=== PATIENT | male | born 1945 | race Caucasian/White ===

== ENCOUNTER 2017-07-15 14:00 | Day surgery (SDC) | payer MEDICARE ==
[~2017-07-15 14:00] MED LIST: ALLO100 PO; ASPI81CH PO; ASPI81EC PO; ATEN25 PO; BIOTIN5000 MCG; BUME2 PO; CHOL10002 PO; CILO100 PO; CLOP75 PO; CYAN1000 PO; CYAN500; D-BIOTIN1 GM; DOCU100 PO; FISH1000 PO; FURO40 PO; Fish Oil 10001000 MG; Flovent Diskus50 MCG IH; GABA100 PO; IRON150C PO; ISOD40ER PO; LATANOPROST2.5 ML RIGHTEYE; LINZESS72 MCG PO; LISI5 PO; Lisinopril2.5 MG PO; MULTI VIT PO; OMEP20ER PO; OXYACE5T PO; Omeprazole20 M1; ROPI.25 PO; ROSU10TA PO; SEVEC800 PO; TAMS.4ER PO; TOCO1000 PO; TOCO400 PO
[2018-04-29] MEDS ORDERED: CARB25 PO (12:14)
[2018-04-29] MEDS ORDERED: SEVEC800 (12:15)
== END 2017-07-15 22:51 | disposition home or self-care (01) ==
LOC: WOUND 14:00
PROC: 0HBNXZZ Excision of Left Foot Skin, External Approach (ICD-10-PCS; principal; 2017-07-15)
DX: Z48.00 Encounter for change or removal of nonsurgical wound dressing (principal); E11.22 Type 2 diabetes mellitus with diabetic chronic kidney disease; L89.892 Pressure ulcer of other site, stage 2; I73.9 Peripheral vascular disease, unspecified; I10 Essential (primary) hypertension; I70.209 Unspecified atherosclerosis of native arteries of extremities, unspecified extremity; D50.9 Iron deficiency anemia, unspecified
CPT/HCPCS: G0463

== ENCOUNTER 2017-07-22 14:04 | Day surgery (SDC) | payer MEDICARE ==
[2018-04-29] MEDS ORDERED: CARB25 PO (12:14)
[2018-04-29] MEDS ORDERED: SEVEC800 (12:15)
== END 2017-07-22 17:17 | disposition home or self-care (01) ==
LOC: WOUND 14:04
PROC: 0HBNXZZ Excision of Left Foot Skin, External Approach (ICD-10-PCS; principal; 2017-07-22)
DX: Z48.00 Encounter for change or removal of nonsurgical wound dressing (principal); E11.22 Type 2 diabetes mellitus with diabetic chronic kidney disease; L89.892 Pressure ulcer of other site, stage 2; I73.9 Peripheral vascular disease, unspecified; I10 Essential (primary) hypertension; I70.209 Unspecified atherosclerosis of native arteries of extremities, unspecified extremity; D50.9 Iron deficiency anemia, unspecified

== ENCOUNTER 2017-07-29 00:19 | Day surgery (SDC) | payer MEDICARE ==
[2018-04-29] MEDS ORDERED: CARB25 PO (12:14)
[2018-04-29] MEDS ORDERED: SEVEC800 (12:15)
== END 2017-07-29 16:01 | disposition home or self-care (01) ==
LOC: WOUND 00:19
PROC: 0JBR0ZZ Excision of Left Foot Subcutaneous Tissue and Fascia, Open Approach (ICD-10-PCS; principal; 2017-07-29)
DX: Z48.00 Encounter for change or removal of nonsurgical wound dressing (principal); E08.622 Diabetes mellitus due to underlying condition with other skin ulcer; L89.892 Pressure ulcer of other site, stage 2; I73.9 Peripheral vascular disease, unspecified; I70.209 Unspecified atherosclerosis of native arteries of extremities, unspecified extremity; D50.9 Iron deficiency anemia, unspecified; E11.22 Type 2 diabetes mellitus with diabetic chronic kidney disease; I12.9 Hypertensive chronic kidney disease with stage 1 through stage 4 chronic kidney disease, or unspecified chronic kidney disease; N18.9 Chronic kidney disease, unspecified; E66.9 Obesity, unspecified; Z99.2 Dependence on renal dialysis

== ENCOUNTER 2017-08-05 13:00 | Day surgery (SDC) | payer MEDICARE ==
[2018-04-29] MEDS ORDERED: CARB25 PO (12:14)
[2018-04-29] MEDS ORDERED: SEVEC800 (12:15)
== END 2017-08-05 14:52 | disposition home or self-care (01) ==
LOC: WOUND 13:00
DX: Z48.00 Encounter for change or removal of nonsurgical wound dressing (principal); E11.22 Type 2 diabetes mellitus with diabetic chronic kidney disease; L89.892 Pressure ulcer of other site, stage 2; I73.9 Peripheral vascular disease, unspecified; I10 Essential (primary) hypertension; I70.209 Unspecified atherosclerosis of native arteries of extremities, unspecified extremity; D50.9 Iron deficiency anemia, unspecified
CPT/HCPCS: G0463

== ENCOUNTER 2017-08-12 14:02 | Day surgery (SDC) | payer MEDICARE ==
[2018-04-29] MEDS ORDERED: CARB25 PO (12:14)
[2018-04-29] MEDS ORDERED: SEVEC800 (12:15)
== END 2017-08-12 22:45 | disposition home or self-care (01) ==
LOC: WOUND 14:02
DX: Z48.00 Encounter for change or removal of nonsurgical wound dressing (principal); E11.22 Type 2 diabetes mellitus with diabetic chronic kidney disease; L89.892 Pressure ulcer of other site, stage 2; I73.9 Peripheral vascular disease, unspecified; I10 Essential (primary) hypertension; I70.209 Unspecified atherosclerosis of native arteries of extremities, unspecified extremity; D50.9 Iron deficiency anemia, unspecified
CPT/HCPCS: G0463

== ENCOUNTER 2017-08-18 07:35 | Day surgery (SDC) | payer MEDICARE ==
[2018-04-29] MEDS ORDERED: CARB25 PO (12:14)
[2018-04-29] MEDS ORDERED: SEVEC800 (12:15)
== END 2017-08-18 23:01 | disposition home or self-care (01) ==
LOC: WOUND 07:35
PROC: 0HBNXZZ Excision of Left Foot Skin, External Approach (ICD-10-PCS; principal; 2017-08-18)
DX: Z48.00 Encounter for change or removal of nonsurgical wound dressing (principal); E11.22 Type 2 diabetes mellitus with diabetic chronic kidney disease; L89.892 Pressure ulcer of other site, stage 2; I73.9 Peripheral vascular disease, unspecified; I10 Essential (primary) hypertension; I70.209 Unspecified atherosclerosis of native arteries of extremities, unspecified extremity; D50.9 Iron deficiency anemia, unspecified
CPT/HCPCS: G0463

== ENCOUNTER 2017-08-21 08:44 | Day surgery (SDC) | payer MEDICARE ==
[2017-08-21] MEDS ORDERED: MERIBIN5 MG PO (15:22)
[2017-08-21] MEDS ORDERED: CILO100 PO (15:22)
[2018-04-29] MEDS ORDERED: CARB25 PO (12:14)
[2018-04-29] MEDS ORDERED: SEVEC800 (12:15)
== END 2017-08-21 23:18 | disposition home or self-care (01) ==
LOC: ATC 08:44 → EDSTATUS 08-20 15:20 → LAB FUT 08-20 15:20
PROC: 30233N1 Transfusion of Nonautologous Red Blood Cells into Peripheral Vein, Percutaneous Approach (ICD-10-PCS; principal; 2017-08-21)
DX: I12.9 Hypertensive chronic kidney disease with stage 1 through stage 4 chronic kidney disease, or unspecified chronic kidney disease (principal); N18.6 End stage renal disease; D63.1 Anemia in chronic kidney disease
CPT/HCPCS: 36415; 36430; 86850; 86900; 86901; 86923; J7030; P9016

== ENCOUNTER 2017-08-25 01:11 | Day surgery (SDC) | payer MEDICARE ==
[~2017-08-25 01:11] MED LIST changes: +MERIBIN5 MG PO
[2018-04-29] MEDS ORDERED: CARB25 PO (12:14)
[2018-04-29] MEDS ORDERED: SEVEC800 (12:15)
== END 2017-08-25 10:11 | disposition home or self-care (01) ==
LOC: ATC 01:11
DX: D64.9 Anemia, unspecified (principal); E11.22 Type 2 diabetes mellitus with diabetic chronic kidney disease; N18.6 End stage renal disease; E78.5 Hyperlipidemia, unspecified; E55.9 Vitamin D deficiency, unspecified; G47.33 Obstructive sleep apnea (adult) (pediatric)
CPT/HCPCS: 36415; 36430; 86850; 86900; 86901; 86923; J7030; P9016

== ENCOUNTER 2017-08-26 00:10 | Day surgery (SDC) | payer MEDICARE ==
[2018-04-29] MEDS ORDERED: CARB25 PO (12:14)
[2018-04-29] MEDS ORDERED: SEVEC800 (12:15)
== END 2017-08-26 15:06 | disposition home or self-care (01) ==
LOC: WOUND 00:10
DX: Z48.00 Encounter for change or removal of nonsurgical wound dressing (principal); E11.22 Type 2 diabetes mellitus with diabetic chronic kidney disease; L89.892 Pressure ulcer of other site, stage 2; I73.9 Peripheral vascular disease, unspecified; I10 Essential (primary) hypertension; D50.9 Iron deficiency anemia, unspecified
CPT/HCPCS: G0463

== ENCOUNTER 2017-09-04 00:34 | Day surgery (SDC) | payer MEDICARE ==
[2018-04-29] MEDS ORDERED: CARB25 PO (12:14)
[2018-04-29] MEDS ORDERED: SEVEC800 (12:15)
== END 2017-09-04 23:56 | disposition home or self-care (01) ==
LOC: WOUND 00:34
PROC: 0HBNXZZ Excision of Left Foot Skin, External Approach (ICD-10-PCS; principal; 2017-09-04)
DX: Z48.00 Encounter for change or removal of nonsurgical wound dressing (principal); E11.22 Type 2 diabetes mellitus with diabetic chronic kidney disease; L89.892 Pressure ulcer of other site, stage 2; I73.9 Peripheral vascular disease, unspecified; I10 Essential (primary) hypertension; I70.209 Unspecified atherosclerosis of native arteries of extremities, unspecified extremity; D50.9 Iron deficiency anemia, unspecified
CPT/HCPCS: 87070; 87205; G0463

== ENCOUNTER 2017-09-09 00:19 | Day surgery (SDC) | payer MEDICARE ==
[2018-04-29] MEDS ORDERED: CARB25 PO (12:14)
[2018-04-29] MEDS ORDERED: SEVEC800 (12:15)
== END 2017-09-09 22:40 | disposition home or self-care (01) ==
LOC: WOUND 00:19
PROC: 0HBNXZZ Excision of Left Foot Skin, External Approach (ICD-10-PCS; principal; 2017-09-09)
PROC: 0HBNXZX Excision of Left Foot Skin, External Approach, Diagnostic (ICD-10-PCS; principal; 2017-09-09)
DX: L89.529 Pressure ulcer of left ankle, unspecified stage (principal); R23.4 Changes in skin texture; E66.9 Obesity, unspecified
CPT/HCPCS: 88305; G0463

== ENCOUNTER 2017-09-11 | Day surgery (SDC) | END 2017-09-11 13:03 | disposition home or self-care (01) ==

== ENCOUNTER 2017-09-16 09:40 | Day surgery (SDC) | payer MEDICARE ==
[2018-04-29] MEDS ORDERED: CARB25 PO (12:14)
[2018-04-29] MEDS ORDERED: SEVEC800 (12:15)
== END 2017-09-16 22:35 | disposition home or self-care (01) ==
LOC: WOUND 09:40
PROC: 0HBNXZZ Excision of Left Foot Skin, External Approach (ICD-10-PCS; principal; 2017-09-16)
DX: L89.892 Pressure ulcer of other site, stage 2 (principal); L89.522 Pressure ulcer of left ankle, stage 2; E66.9 Obesity, unspecified; E11.51 Type 2 diabetes mellitus with diabetic peripheral angiopathy without gangrene; I73.9 Peripheral vascular disease, unspecified; E11.22 Type 2 diabetes mellitus with diabetic chronic kidney disease; I10 Essential (primary) hypertension; I70.209 Unspecified atherosclerosis of native arteries of extremities, unspecified extremity; D50.9 Iron deficiency anemia, unspecified

== ENCOUNTER 2017-09-23 00:13 | Day surgery (SDC) | payer MEDICARE ==
[2018-04-29] MEDS ORDERED: CARB25 PO (12:14)
[2018-04-29] MEDS ORDERED: SEVEC800 (12:15)
== END 2017-09-23 22:44 | disposition home or self-care (01) ==
LOC: WOUND 00:13
PROC: 2W1 Placement, Anatomical Regions, Compression (ICD-10-PCS; principal; 2017-09-23)
DX: L89.892 Pressure ulcer of other site, stage 2 (principal); E11.22 Type 2 diabetes mellitus with diabetic chronic kidney disease; E11.51 Type 2 diabetes mellitus with diabetic peripheral angiopathy without gangrene; I73.9 Peripheral vascular disease, unspecified; I10 Essential (primary) hypertension; I70.209 Unspecified atherosclerosis of native arteries of extremities, unspecified extremity; D50.9 Iron deficiency anemia, unspecified

== ENCOUNTER 2017-09-25 09:30 | Day surgery (SDC) | payer MEDICARE ==
[2018-04-29] MEDS ORDERED: CARB25 PO (12:14)
[2018-04-29] MEDS ORDERED: SEVEC800 (12:15)
== END 2017-09-25 22:56 | disposition home or self-care (01) ==
LOC: WOUND 09:30
PROC: 0HBNXZZ Excision of Left Foot Skin, External Approach (ICD-10-PCS; principal; 2017-09-25)
PROC: 2W1TX6Z Compression of Left Foot using Pressure Dressing (ICD-10-PCS; principal; 2017-09-25)
DX: L89.522 Pressure ulcer of left ankle, stage 2 (principal); E11.22 Type 2 diabetes mellitus with diabetic chronic kidney disease; I73.9 Peripheral vascular disease, unspecified; I70.209 Unspecified atherosclerosis of native arteries of extremities, unspecified extremity; D50.9 Iron deficiency anemia, unspecified; E66.9 Obesity, unspecified; Z99.2 Dependence on renal dialysis

== ENCOUNTER 2017-09-28 15:14 | Day surgery (SDC) | payer MEDICARE ==
[2018-04-29] MEDS ORDERED: CARB25 PO (12:14)
[2018-04-29] MEDS ORDERED: SEVEC800 (12:15)
== END 2017-09-28 23:03 | disposition home or self-care (01) ==
LOC: WOUND 15:14
PROC: 2W0TX6Z Change Pressure Dressing on Left Foot (ICD-10-PCS; principal; 2017-09-28)
DX: Z48.00 Encounter for change or removal of nonsurgical wound dressing (principal); E11.621 Type 2 diabetes mellitus with foot ulcer; L97.429 Non-pressure chronic ulcer of left heel and midfoot with unspecified severity; E11.622 Type 2 diabetes mellitus with other skin ulcer; L89.529 Pressure ulcer of left ankle, unspecified stage; L89.892 Pressure ulcer of other site, stage 2; E11.22 Type 2 diabetes mellitus with diabetic chronic kidney disease; I12.0 Hypertensive chronic kidney disease with stage 5 chronic kidney disease or end stage renal disease; N18.6 End stage renal disease; I70.209 Unspecified atherosclerosis of native arteries of extremities, unspecified extremity; D50.9 Iron deficiency anemia, unspecified; Z99.2 Dependence on renal dialysis; E66.9 Obesity, unspecified

== ENCOUNTER 2017-10-09 00:16 | Day surgery (SDC) | payer MEDICARE ==
[2018-04-29] MEDS ORDERED: CARB25 PO (12:14)
[2018-04-29] MEDS ORDERED: SEVEC800 (12:15)
== END 2017-10-09 15:55 | disposition home or self-care (01) ==
LOC: WOUND 00:16
DX: Z48.00 Encounter for change or removal of nonsurgical wound dressing (principal); E11.621 Type 2 diabetes mellitus with foot ulcer; L97.521 Non-pressure chronic ulcer of other part of left foot limited to breakdown of skin; I70.209 Unspecified atherosclerosis of native arteries of extremities, unspecified extremity; L89.892 Pressure ulcer of other site, stage 2; I10 Essential (primary) hypertension; D50.9 Iron deficiency anemia, unspecified; E66.9 Obesity, unspecified; Z68.33 Body mass index [BMI] 33.0-33.9, adult

== ENCOUNTER 2017-10-14 13:30 | Day surgery (SDC) | payer MEDICARE | END 2017-10-14 14:47 | disposition home or self-care (01) | LOC: WOUND 13:30 | PROC: 0HBNXZZ Excision of Left Foot Skin, External Approach (ICD-10-PCS; principal; 2017-10-14) | DX: L89.522 Pressure ulcer of left ankle, stage 2 (principal); E11.22 Type 2 diabetes mellitus with diabetic chronic kidney disease; L89.892 Pressure ulcer of other site, stage 2; I73.9 Peripheral vascular disease, unspecified; I10 Essential (primary) hypertension; I70.209 Unspecified atherosclerosis of native arteries of extremities, unspecified extremity; D50.9 Iron deficiency anemia, unspecified; E11.9 Type 2 diabetes mellitus without complications | CPT/HCPCS: G0463 ==

== ENCOUNTER 2017-10-21 09:13 | Day surgery (SDC) | payer MEDICARE | END 2017-10-21 22:45 | disposition home or self-care (01) | LOC: WOUND 09:13 | PROC: 2W1TX6Z Compression of Left Foot using Pressure Dressing (ICD-10-PCS; principal; 2017-10-21) | DX: L89.529 Pressure ulcer of left ankle, unspecified stage (principal); L89.892 Pressure ulcer of other site, stage 2; I73.9 Peripheral vascular disease, unspecified; I10 Essential (primary) hypertension; I70.209 Unspecified atherosclerosis of native arteries of extremities, unspecified extremity; D50.9 Iron deficiency anemia, unspecified; E11.9 Type 2 diabetes mellitus without complications; Z99.2 Dependence on renal dialysis ==

== ENCOUNTER 2018-01-05 11:21 | Inpatient (IN) | payer MEDICARE ==
[~2018-01-05] VITALS: Ht 167.6 cm; Wt 87.5 kg
[2018-01-05 12:19] LABS: BASOPHILS ABSOLUTE AUTO 0.06 K/mm3 (0.00-0.23); BASOPHILS PERCENT AUTO 1 % (0-2); EOSINOPHILS ABSOLUTE AUTO 0.29 K/mm3 (0.00-0.68); EOSINOPHILS PERCENT AUTO 2 % (0-6); Hematocrit 37.4 % (37.0-53.0); Hemoglobin 12.6 g/dL (13.5-17.5); IMMATURE GRAN ABSOLUTE AUTO 0.04 K/mm3 (0.00-0.10); IMMATURE GRAN PERCENT AUTO 0 % (0-1); LYMPHOCYTES ABSOLUTE AUTO 3.36 K/mm3 (0.84-5.20); LYMPHOCYTES PERCENT AUTO 26 % (21-46); MONOCYTES ABSOLUTE AUTO 0.85 K/mm3 (0.16-1.47); MONOCYTES PERCENT AUTO 7 % (4-13); Mean Corpuscular HGB 29.4 pg (26.0-34.0); Mean Corpuscular HGB Conc 33.7 g/dL (31.5-36.5); Mean Corpuscular Volume 87 fL (80-100); Mean Platelet Volume 9.8 fL (9.1-12.4); NEUTROPHILS ABSOLUTE AUTO 8.26 K/mm3 (1.96-9.15); NEUTROPHILS PERCENT AUTO 64 % (41-73); Platelet Count 275 K/mm3 (150-400); RDW Standard Deviation 47.6 fL (35.1-46.3); Red Blood Cell Count 4.28 M/mm3 (4.30-5.90); White Blood Cell Count 12.86 K/mm3 (4.00-11.30)
[2018-01-05] MEDS ORDERED: Fish Oil 10001000 MG PO (12:25)
[2018-01-05] MEDS ORDERED: Ropinirole HCl0.5 MG PO (12:28)
[2018-01-05] MEDS ORDERED: LATANOPROST2.5 ML OP (12:28)
[2018-01-05 12:32] LABS: Alanine Aminotransfer (ALT/SGP 196 U/L (12-78); Albumin, Blood 3.4 g/dL (3.4-5.0); Albumin/Globulin Ratio 0.6 (0.8-1.8); Alk Phos 384 U/L (50-136); Anion Gap 17 mmol/L (6-16); Aspartate Aminotrans (AST/SGOT 301 U/L (12-37); Bilirubin, Total 1.8 mg/dL (0.1-1.0); Blood Urea Nitrogen 71 mg/dL (8-24); Bun/Creatinine Ratio 9.6 (12.0-20.0); CO2, Blood 26 mmol/L (21-32); CPK Creatine Kinase 196 U/L (39-308); Calcium, Blood 8.9 mg/dL (8.5-10.1); Chloride, Blood 88 mmol/L (98-108); Creatine Kinase MB 7.2 ng/mL (0.0-3.6); Creatine Kinase MB Index 3.7 (0.0-4.0); Creatinine, Blood 7.37 mg/dL (0.60-1.20); Globulin, Blood 5.5 g/dL (2.2-4.0); Glomerular Filtration Rate 8 (60-); Glucose, Blood 102 mg/dL (70-99); Potassium, Blood 3.5 mmol/L (3.5-5.5); Sodium, Blood 131 mmol/L (136-145); Total Protein, Blood 8.9 g/dL (6.4-8.2); Troponin I <0.015 ng/mL (0.000-0.040)
[2018-01-05] MEDS ORDERED: TAMS.4ER PO (15:52)
[2018-01-05] MEDS ORDERED: Omeprazole20 M1 PO (15:53)
[2018-01-05 20:11] LABS: Anion Gap 15 mmol/L (6-16); Blood Urea Nitrogen 70 mg/dL (8-24); Bun/Creatinine Ratio 9.2 (12.0-20.0); CO2, Blood 25 mmol/L (21-32); Calcium, Blood 8.4 mg/dL (8.5-10.1); Chloride, Blood 91 mmol/L (98-108); Creatinine, Blood 7.63 mg/dL (0.60-1.20); Glomerular Filtration Rate 7 (60-); Glucose, Blood 128 mg/dL (70-99); Potassium, Blood 3.3 mmol/L (3.5-5.5); Sodium, Blood 131 mmol/L (136-145); Triglycerides 172 mg/dL (30-160)
[2018-01-06 05:13] LABS: Hemoglobin 11.6 g/dL (13.5-17.5)
[2018-01-06 05:38] LABS: Alanine Aminotransfer (ALT/SGP 453 U/L (12-78); Albumin, Blood 2.8 g/dL (3.4-5.0); Albumin/Globulin Ratio 0.6 (0.8-1.8); Alk Phos 523 U/L (50-136); Anion Gap 18 mmol/L (6-16); Aspartate Aminotrans (AST/SGOT 359 U/L (12-37); Bilirubin, Direct 2.7 mg/dL (0.0-0.3); Bilirubin, Indirect 0.7 mg/dL (0.1-0.7); Bilirubin, Total 3.4 mg/dL (0.1-1.0); Blood Urea Nitrogen 73 mg/dL (8-24); Bun/Creatinine Ratio 9.1 (12.0-20.0); CO2, Blood 23 mmol/L (21-32); Calcium, Blood 8.2 mg/dL (8.5-10.1); Chloride, Blood 91 mmol/L (98-108); Globulin, Blood 4.8 g/dL (2.2-4.0); Glomerular Filtration Rate 7 (60-); Glucose, Blood 120 mg/dL (70-99); Magnesium, Blood 2.3 mg/dL (1.6-2.4); Phosphorus, Blood 7.7 mg/dL (2.5-4.9); Potassium, Blood 4.2 mmol/L (3.5-5.5); Sodium, Blood 132 mmol/L (136-145); Total Protein, Blood 7.6 g/dL (6.4-8.2)
[2018-01-07 05:19] LABS: Hematocrit 36.1 % (37.0-53.0); Hemoglobin 11.7 g/dL (13.5-17.5)
[2018-01-07 05:47] LABS: Magnesium, Blood 2.5 mg/dL (1.6-2.4)
[2018-01-07 05:57] LABS: Alanine Aminotransfer (ALT/SGP 278 U/L (12-78); Albumin, Blood 2.6 g/dL (3.4-5.0); Albumin/Globulin Ratio 0.5 (0.8-1.8); Alk Phos 600 U/L (50-136); Anion Gap 14 mmol/L (6-16); Aspartate Aminotrans (AST/SGOT 142 U/L (12-37); Bilirubin, Total 3.8 mg/dL (0.1-1.0); Blood Urea Nitrogen 60 mg/dL (8-24); Bun/Creatinine Ratio 8.2 (12.0-20.0); CO2, Blood 28 mmol/L (21-32); Calcium, Blood 8.8 mg/dL (8.5-10.1); Chloride, Blood 92 mmol/L (98-108); Globulin, Blood 4.8 g/dL (2.2-4.0); Glomerular Filtration Rate 8 (60-); Glucose, Blood 112 mg/dL (70-99); Phosphorus, Blood 7.6 mg/dL (2.5-4.9); Potassium, Blood 4.4 mmol/L (3.5-5.5); Sodium, Blood 134 mmol/L (136-145); Total Protein, Blood 7.4 g/dL (6.4-8.2)
[2018-01-07 17:08] LABS: HBSAG SCREEN Negative (Negative); HEP A AB, IGM Negative (Negative); HEP B CORE AB, IGM Negative (Negative); HEP C VIRUS AB 0.1 (0.0-0.9)
[2018-01-08 05:21] LABS: Hematocrit 33.9 % (37.0-53.0)
[2018-01-08 05:41] LABS: Albumin, Blood 2.4 g/dL (3.4-5.0); Anion Gap 14 mmol/L (6-16); Blood Urea Nitrogen 58 mg/dL (8-24); Bun/Creatinine Ratio 8.7 (12.0-20.0); CO2, Blood 29 mmol/L (21-32); Chloride, Blood 94 mmol/L (98-108); Creatinine, Blood 6.63 mg/dL (0.60-1.20); Glomerular Filtration Rate 9 (60-); Glucose, Blood 111 mg/dL (70-99); Magnesium, Blood 2.9 mg/dL (1.6-2.4); Sodium, Blood 137 mmol/L (136-145)
== END 2018-01-08 16:50 | disposition short-term general hospital (02) | DRG 438 ==
LOC: ER 11:21 → PCU 14:36
PROVIDERS: Emergency Medicine; Internal Medicine Endocrinology, Diabetes & Metabolism; Internal Medicine Nephrology; Surgery
PROC: 5A1D70Z Performance of Urinary Filtration, Intermittent, Less than 6 Hours Per Day (ICD-10-PCS; principal; 2018-01-06)
PROC: 5A09457 Assistance with Respiratory Ventilation, 24-96 Consecutive Hours, Continuous Positive Airway Pressure (ICD-10-PCS; 2018-01-06)
DX: K85.10 Biliary acute pancreatitis without necrosis or infection (principal); N18.6 End stage renal disease; E87.1 Hypo-osmolality and hyponatremia; I12.0 Hypertensive chronic kidney disease with stage 5 chronic kidney disease or end stage renal disease; K80.70 Calculus of gallbladder and bile duct without cholecystitis without obstruction; E87.6 Hypokalemia; E86.9 Volume depletion, unspecified; D63.1 Anemia in chronic kidney disease; E83.39 Other disorders of phosphorus metabolism; E88.09 Other disorders of plasma-protein metabolism, not elsewhere classified; I25.10 Atherosclerotic heart disease of native coronary artery without angina pectoris; J44.9 Chronic obstructive pulmonary disease, unspecified; M54.16 Radiculopathy, lumbar region; Z95.1 Presence of aortocoronary bypass graft; I73.9 Peripheral vascular disease, unspecified; E78.5 Hyperlipidemia, unspecified; G47.33 Obstructive sleep apnea (adult) (pediatric); E66.9 Obesity, unspecified; Z68.31 Body mass index [BMI] 31.0-31.9, adult; Z99.2 Dependence on renal dialysis; Z87.891 Personal history of nicotine dependence; Z79.82 Long term (current) use of aspirin; Z79.899 Other long term (current) drug therapy
CPT/HCPCS: 36415; 71046; 74019; 74181; 76705; 80048; 80053; 80069; 80074; 82248; 82550; 82553; 83690; 83735; 84100; 84132; 84478; 84484; 85014; 85018; 85025; 86317; 93005; 93010; 94760; 94762; 96374; 96375; 99285; C9113; J1170; J2405; J3010; J7030; J7042

== ENCOUNTER 2018-08-05 12:04 | Day surgery (SDC) | payer MEDICARE ==
[~2018-08-05] VITALS: Ht 157.5 cm; Wt 87.1 kg
[~2018-08-05 12:04] MED LIST changes: +CARB25 PO; +Fish Oil 10001000 MG PO; +LATANOPROST2.5 ML OP; +Omeprazole20 M1 PO; +Ropinirole HCl0.5 MG PO; +SEVEC800
== END 2018-08-05 13:56 | disposition home or self-care (01) ==
LOC: ORSCSDS 12:04
PROVIDERS: Ophthalmology
PROC: 08RK3JZ Replacement of Left Lens with Synthetic Substitute, Percutaneous Approach (ICD-10-PCS; principal; 2018-08-05 13:30)
DX: H25.12 Age-related nuclear cataract, left eye (principal); H21.81 Floppy iris syndrome; E11.36 Type 2 diabetes mellitus with diabetic cataract; I10 Essential (primary) hypertension; I25.2 Old myocardial infarction; G47.30 Sleep apnea, unspecified; K21.9 Gastro-esophageal reflux disease without esophagitis; Z87.891 Personal history of nicotine dependence; Z79.82 Long term (current) use of aspirin; Z79.899 Other long term (current) drug therapy
CPT/HCPCS: J2001; J2250; J3010; J7030; J7120; V2632

== ENCOUNTER → 2018-09-08 | Outpatient (CLI) | payer MEDICARE | END | disposition home or self-care (01) | LOC: PLD 11:26 → LAB SHORT 11:26 | DX: L11.8 Other specified acantholytic disorders (principal) | CPT/HCPCS: 88305 ==

== ENCOUNTER → 2018-09-27 | Outpatient (CLI) | payer MEDICARE | END | disposition home or self-care (01) | LOC: LAB 13:58 → LAB SHORT 13:58 | DX: A31.9 Mycobacterial infection, unspecified (principal) | CPT/HCPCS: 87070; 87075; 87205; 87206 ==

== ENCOUNTER 2018-11-08 21:42 | Inpatient (IN) | payer MEDICARE ==
[~2018-11-08] VITALS: Ht 177.8 cm; Wt 84.8 kg
[~2018-11-08 21:42] MED LIST changes: -SEVEC800
[2018-11-08 22:25] LABS: BASOPHILS ABSOLUTE AUTO 0.08 K/mm3 (0.00-0.23); BASOPHILS PERCENT AUTO 1 % (0-2); EOSINOPHILS ABSOLUTE AUTO 0.21 K/mm3 (0.00-0.68); EOSINOPHILS PERCENT AUTO 2 % (0-6); Hematocrit 39.2 % (37.0-53.0); IMMATURE GRAN ABSOLUTE AUTO 0.05 K/mm3 (0.00-0.10); IMMATURE GRAN PERCENT AUTO 0 % (0-1); LYMPHOCYTES ABSOLUTE AUTO 3.77 K/mm3 (0.84-5.20); LYMPHOCYTES PERCENT AUTO 32 % (21-46); MONOCYTES ABSOLUTE AUTO 1.46 K/mm3 (0.16-1.47); MONOCYTES PERCENT AUTO 12 % (4-13); Mean Corpuscular HGB 30.2 pg (26.0-34.0); Mean Corpuscular HGB Conc 30.6 g/dL (31.5-36.5); Mean Corpuscular Volume 99 fL (80-100); Mean Platelet Volume 9.6 fL (9.1-12.4); NEUTROPHILS ABSOLUTE AUTO 6.39 K/mm3 (1.96-9.15); NEUTROPHILS PERCENT AUTO 53 % (41-73); Platelet Count 392 K/mm3 (150-400); RDW Coefficient Variation 15.9 % (11.7-14.2); RDW Standard Deviation 58.2 fL (35.1-46.3); Red Blood Cell Count 3.97 M/mm3 (4.30-5.90); White Blood Cell Count 11.96 K/mm3 (4.00-11.30)
[2018-11-08 22:46] LABS: Albumin/Globulin Ratio 0.6 (0.8-1.8); Bilirubin, Total 0.7 mg/dL (0.1-1.0); Bun/Creatinine Ratio 3.1 (12.0-20.0); Calcium, Blood 10.5 mg/dL (8.5-10.1); Creatinine, Blood 4.57 mg/dL (0.60-1.20); Globulin, Blood 5.4 g/dL (2.2-4.0); Potassium, Blood 3.6 mmol/L (3.5-5.5); Total Protein, Blood 8.4 g/dL (6.4-8.2)
[2018-11-08 23:57] LABS: PO2 Arterial 62.7 mmHg (80-100); pH Blood Arterial 7.74 (7.35-7.45)
[2018-11-09] MEDS ORDERED: CALC.25 (00:26)
[2018-11-09] MEDS ORDERED: Vitamin D2000 UNIT PO (00:27)
[2018-11-09] MEDS ORDERED: Calcium Acetat667 MG PO (00:27)
[2018-11-09] MEDS ORDERED: DOCU100 PO (00:28)
[2018-11-09] MEDS ORDERED: LACT10SY PO (00:29)
[2018-11-09] MEDS ORDERED: OXYC5 PO (00:30)
[2018-11-09] MEDS ORDERED: Oxycodone-Apap1 EAC3 PO (00:31)
[2018-11-09] MEDS ORDERED: NITR.4SL SL (00:32)
[2018-11-09] MEDS ORDERED: MIRALAX17 GM PO (00:33)
[2018-11-09 00:54] LABS: Influenza A Negative (NEGATIVE); Influenza B Negative (NEGATIVE)
--- NOTE | 2018-11-09 01:30 | NUR ---
ADMIT PT ARRIVES TO PCU 12 FROM ER VIA STRETCHER. CURRENTLY ORIENTED TO SELF, FAMILY, MONTH,YEAR AND PLACE- DISORIENTED TO DAY, TOWN AND PRESIDENT. FAMILY REPORTS THAT HE IS MORE COHERENT THAT HE WAS EARLIER. PT APPEARS TO BE VERY ANXIOUS AND FIDGETY- PULLING LEGS UP AND REPORTING PAIN AND CRAMPING TO L LEG THAT IS CHRONIC DUE TO CYST IN BACK THAT IS PRESSING ON NERVE PER PT AND FAMILY. PT IS AFEBRILE. TACHYPNEA NOTED WITH ANXIETY AND REPORTS OF PAIN- O2 SATS CURRENTLY 97% ON RA, ALL OTHER VSS. LUNG SOUNDS CLEAR IN UPPER LOBES WITH DIMINISHED CRACKLES NOTED TO BASES- SHALLOW RESPIRATIONS NOTED. MEPILEX DRESSING NOTED TO LOWER UMBILICAL REGION OF ABDOMEN COVERING WOUND FROM PREVIOUS PERITINEAL DIALYSIS SITE THAT HAS A SMALL AMOUNT OF BROWN, PURULENT DRAINAGE. PT REPORTING DISCOMFORT TO RECTUM AND STATES THAT HE HAS NOT HAD A BOWEL MOVEMENT IN 6 DAYS- ABDOMEN IS SOFT AND NON-TENDER ON PALPATION PER PT, BS PRESENT IN ALL QUADRANTS. PT ORIENTED TO ROOM AND CALL LIGHT SYSTEM. EDUCATED ON PROPER CALL LIGHT USE AND CALLING FOR ASSISTANCE WITH CARE AND AMBULATION. WILL CONTINUE WITH ADMISSION AND ASSESSMENT. FAMILY REMAINS AT BEDSIDE. BED IN LOW POSITION, CALL LIGHT IN REACH.
[2018-11-09 01:54] LABS: BASOPHILS ABSOLUTE AUTO 0.05 K/mm3 (0.00-0.23); BASOPHILS PERCENT AUTO 1 % (0-2); EOSINOPHILS ABSOLUTE AUTO 0.02 K/mm3 (0.00-0.68); EOSINOPHILS PERCENT AUTO 0 % (0-6); Hematocrit 35.8 % (37.0-53.0); Hemoglobin 11.2 g/dL (13.5-17.5); IMMATURE GRAN ABSOLUTE AUTO 0.06 K/mm3 (0.00-0.10); IMMATURE GRAN PERCENT AUTO 1 % (0-1); LYMPHOCYTES ABSOLUTE AUTO 1.36 K/mm3 (0.84-5.20); LYMPHOCYTES PERCENT AUTO 13 % (21-46); MONOCYTES ABSOLUTE AUTO 1.23 K/mm3 (0.16-1.47); MONOCYTES PERCENT AUTO 12 % (4-13); Mean Corpuscular HGB 30.9 pg (26.0-34.0); Mean Corpuscular HGB Conc 31.3 g/dL (31.5-36.5); Mean Corpuscular Volume 99 fL (80-100); Mean Platelet Volume 9.8 fL (9.1-12.4); NEUTROPHILS ABSOLUTE AUTO 7.99 K/mm3 (1.96-9.15); NEUTROPHILS PERCENT AUTO 75 % (41-73); Platelet Count 322 K/mm3 (150-400); RDW Coefficient Variation 15.9 % (11.7-14.2); RDW Standard Deviation 57.7 fL (35.1-46.3); Red Blood Cell Count 3.62 M/mm3 (4.30-5.90); White Blood Cell Count 10.71 K/mm3 (4.00-11.30)
[2018-11-09 02:12] LABS: Albumin, Blood 2.5 g/dL (3.4-5.0); Albumin/Globulin Ratio 0.5 (0.8-1.8); Bilirubin, Total 0.7 mg/dL (0.1-1.0); Bun/Creatinine Ratio 3.4 (12.0-20.0); Calcium, Blood 9.4 mg/dL (8.5-10.1); Creatinine, Blood 4.66 mg/dL (0.60-1.20); Globulin, Blood 4.7 g/dL (2.2-4.0); Potassium, Blood 3.8 mmol/L (3.5-5.5); Total Protein, Blood 7.2 g/dL (6.4-8.2)
[2018-11-09 04:57] LABS: Hematocrit 36.3 % (37.0-53.0); Hemoglobin 11.2 g/dL (13.5-17.5)
[2018-11-09 05:11] LABS: Albumin, Blood 2.6 g/dL (3.4-5.0); Anion Gap 9 mmol/L (6-16); Blood Urea Nitrogen 16 mg/dL (8-24); Bun/Creatinine Ratio 3.4 (12.0-20.0); CO2, Blood 28 mmol/L (21-32); Calcium, Blood 9.7 mg/dL (8.5-10.1); Chloride, Blood 99 mmol/L (98-108); Creatinine, Blood 4.71 mg/dL (0.60-1.20); Glomerular Filtration Rate 13 (60-); Glucose, Blood 91 mg/dL (70-99); Magnesium, Blood 2.2 mg/dL (1.6-2.4); Phosphorus, Blood 2.2 mg/dL (2.5-4.9); Potassium, Blood 3.7 mmol/L (3.5-5.5); Sodium, Blood 136 mmol/L (136-145)
--- NOTE | 2018-11-09 05:54 | NUR ---
SHIFT SUMMARY- PT HAS BECOME MORE RELAXED AND ORIENTED THROUGHOUT THE REMAINDER OF THE NIGHT, BUT STILL UNABLE TO REPORT CURRENT DATE. VSS. HAS BEEN COOPERATIVE WITH CARE. PT MEDICATED ONCE FOR PAIN THAT DECREASED WITH ORDERED MEDICATION, CONTINUES TO REPORT DISCOMFORT TO RECTUM AND FEELS THAT HE WILL NEED TO HAVE A BM, BOWEL CARE INITIATED. PT HAS SLEPT THROUGHOUT PART OF THE NIGHT WITH CPAP IN PLACE WITH 3L O2 BLEED IN, WHICH IS BASELINE. O2 SATS HAVE REMAINED >90%. WOUND CARE PROVIDED AND DRESSING CHANGED TO ABDOMINAL WOUND. NO OTHER CHANGES FROM INITIAL ASSESSMENT. WILL CONTINUE TO MONITOR AND REPORT TO ONCOMING SHIFT RN. BED IN LOW POSITION, CALL LIGHT IN REACH. FAMILY REMAINS AT BEDSIDE.
--- NOTE | 2018-11-09 09:45 | NUR ---
RECEIVED REPORT AND ASSUMED CARE OF PATIENT. WHEN ASSESSING PATIENT HE IS CONFUSED AND SEEMS TO HAVE NONSENSICAL SPEECH. STATES HE NEEDS TO USE BEDPAN, CONTINUE TO PUT ON/OFF BEDPAN AND HAVE ADMINISTERED MEDICATIONS PER EMAR FOR BM PROTOCOL. PT TO DIALYSIS AT 0915.
[2018-11-09 12:24] LABS: Vancomycin, Random 11.9 ug/mL
--- NOTE | 2018-11-09 15:00 | NUR ---
PT BACK FROM DIALYSIS AROUND 1230, PT CONTINUES TO REPORT THAT HE NEEDS TO HAVE BM, BUT NO SUCESS. DRAFTER DIRECTIONAL SURVEY DEMOND ASKED FAMILY TO LEAVE ROOM AND PT WAS ABLE TO HAVE LARGE BM. TRANSFER ORDERS RECEIVED TO GO TO ROOM 339.
--- NOTE | 2018-11-09 15:24 | NUR ---
PT BEING TRANSFERRED TO MEDICAL FLOOR 339. GAVE REPORT TO NIKI GRIMALDO. WILL PREPARE PATIENTS ITEMS AND TRANSFER.
--- NOTE | 2018-11-10 04:57 | NUR ---
73 Y/O MALE RESTED COMFORTABLY ALL EVENING. PT NPO SINCE MIDNIGHT FOR ENDOSCOPY THIS AM AT 1100. PT ALERT AND ORIENTED X 3. NO RECTAL BLEEDING NOTED. PTS BED ALARM APPLIED, BED IN LOW POSITION, CALL LIGHT AT SIDE.
[2018-11-10 15:00] LABS: Vancomycin, Random 25.8 ug/mL
--- NOTE | 2018-11-10 17:31 | NUR ---
SHIFT SUMMARY PT HAS HAD NO ACUTE CHANGES THIS SHIFT, NO COMPLAINTS OF ANY KIND, PT UP ST BY ASSIST TO BR, UP IN RECLINER W/FAMILY AT BEDSIDE AT THIS TIME, WILL CONT TO MONITOR UNTIL REPORT GIVEN TO NOC RN.
[2018-11-11 05:15] LABS: Hematocrit 30.1 % (37.0-53.0); Hemoglobin 9.2 g/dL (13.5-17.5)
--- NOTE | 2018-11-11 05:17 | NUR ---
73 Y/O MALE RESTED COMFORTABLY IN BED ALL EVENING WHILE WEARING BI-PAP WITH O2 SATS AT 91%. PT ALERT AND ORIENTED X3, ABLE TO FOLLOW ALL SIMPLE VERBAL COMMANDS. PT DENIES PAIN OR NAUSEA. PT MAINTAINED IN CONTACT ISOLATION, BED LOW POSITION, CALL LIGHT AT SIDE.
[2018-11-11 05:37] LABS: Albumin, Blood 2.2 g/dL (3.4-5.0); Anion Gap 9 mmol/L (6-16); Blood Urea Nitrogen 34 mg/dL (8-24); Bun/Creatinine Ratio 4.9 (12.0-20.0); CO2, Blood 27 mmol/L (21-32); Calcium, Blood 9.6 mg/dL (8.5-10.1); Chloride, Blood 98 mmol/L (98-108); Creatinine, Blood 6.92 mg/dL (0.60-1.20); Glomerular Filtration Rate 8 (60-); Glucose, Blood 89 mg/dL (70-99); Magnesium, Blood 2.6 mg/dL (1.6-2.4); Phosphorus, Blood 6.5 mg/dL (2.5-4.9); Potassium, Blood 4.6 mmol/L (3.5-5.5); Sodium, Blood 134 mmol/L (136-145)
[2018-11-11 12:50] LABS: Vancomycin, Random 15.3 ug/mL
--- NOTE | 2018-11-11 18:45 | NUR ---
SHIFT SUMMARY NO ACUTE CHANGES. PATIENT HAD DIALYIS TODAY. MEDICATED X1 FOR BACK PAIN. SBA W/FWW TO BR. DENIES NAUSEA OR SHORTNESS OF BREATH. FAMILY AT BEDSIDE. CONTINUOUS BIOX. CPAP FOR NAPS. WILL CONTINUE TO MONITOR.
[2018-11-12 05:10] LABS: Hematocrit 28.8 % (37.0-53.0); Hemoglobin 8.8 g/dL (13.5-17.5)
[2018-11-12 05:36] LABS: Albumin, Blood 2.1 g/dL (3.4-5.0); Anion Gap 9 mmol/L (6-16); Blood Urea Nitrogen 28 mg/dL (8-24); Bun/Creatinine Ratio 4.8 (12.0-20.0); CO2, Blood 27 mmol/L (21-32); Calcium, Blood 9.5 mg/dL (8.5-10.1); Chloride, Blood 100 mmol/L (98-108); Creatinine, Blood 5.86 mg/dL (0.60-1.20); Glomerular Filtration Rate 10 (60-); Glucose, Blood 87 mg/dL (70-99); Magnesium, Blood 2.4 mg/dL (1.6-2.4); Phosphorus, Blood 5.3 mg/dL (2.5-4.9); Potassium, Blood 4.5 mmol/L (3.5-5.5); Sodium, Blood 136 mmol/L (136-145)
--- NOTE | 2018-11-12 07:28 | NUR ---
ASSUMED CARE OF PT- BEDSIDE REPORT COMPLETED WITH NIGHT RN BELKYS. PER REPORT PT IS A STANDBY TO 1PA TO THE BATHROOM. PT HAS CPAP AT NIGHT AND DESATS, EVEN DURRING NAPS, SIGNIFICANTLY WITHOUT IT. PT CURRENTLY SITTING AT THE EOB WITH THE CALL LIGHT IN REACH. PER REPORT PT WAS UP INTO THE CHAIR AND BACK TO BED REPEATEDLY T/O THE NIGHT. NO S&S OF DISTRESS NOTED, RESP E/U, ON CONT BIOX.
--- NOTE | 2018-11-12 12:13 | NUR ---
SITE TO BE ACCESSED BY Avani TORIBIO RN
[2018-11-12 14:30] LABS: Vancomycin, Random 20.4 ug/mL
--- NOTE | 2018-11-12 15:42 | NUR ---
Met with Glenroy in the dialysis unit this afternoon. He was admitted with sepsis and possible pneumonia. He has a history of ESRD on HD, COPD, CAD, HLD, peripheral neuropathy, ILENE, PVD, chronic pain, chronic systolic HF with EF of 40-45%. He rec'd one unit of PRBCs during dialysis treatment today. He reports fatigue today. He infact slept through most of his dialysis treatment today. Chart reviewed. Glenroy lives with his and will need antibiotics after he is discharged. Brief revies of symptoms done as Glenroy is fatigued. He denied pain, N/V, SOB at anthony time of this visit. Will need to address code status when he isn't so sleepy. Possible discharge home with tomorrow per MD note.
--- NOTE | 2018-11-12 19:25 | NUR ---
SHIFT SUMMARY- PT HAS HAD NO ACUTE CHANGES T/O THE SHIFT. HEMODIALYSIS DONE TODAY WITH BLOOD TRANSFUSION. PLAN FOR PT TO DC HOME TOMORROW, FAMILY AWARE. PT IN BED CALL LIGHT IN REACH, CURENT PAIN RAITING 10/27. PT ALERT AND ORIENTED AND 1P SBA TO THE BATHROOM. ON CONT BIOX, HAS NOT NEEDED CPAP FOR NAPS TODAY SATS STAYED IN THE 90'S T/O THE DAY.
--- NOTE | 2018-11-13 04:28 | NUR ---
INSURANCE COUNSEL SUMMARY NO ACUTE CHANGES THIS SHIFT. PT AAOX4 AND PLEASANT. CALLS APPROPRIATELY FOR ASSISTANCE. TREATED FOR BACK PAIN X1 WITH 2 TABS PERCOCET. PT REQUESTED TO SLEEP IN THE RECLINER TO HELP WITH BACK PAIN. PT TOLERATING CPAP WHILE SLEEPING. VSS, WILL CONTINUE TO MONITOR.
[2018-11-13 05:16] LABS: Hematocrit 32.6 % (37.0-53.0); Hemoglobin 10.1 g/dL (13.5-17.5)
[2018-11-13 06:15] LABS: Albumin, Blood 2.2 g/dL (3.4-5.0); Anion Gap 7 mmol/L (6-16); Blood Urea Nitrogen 27 mg/dL (8-24); Bun/Creatinine Ratio 4.9 (12.0-20.0); CO2, Blood 32 mmol/L (21-32); Calcium, Blood 9.4 mg/dL (8.5-10.1); Chloride, Blood 95 mmol/L (98-108); Creatinine, Blood 5.47 mg/dL (0.60-1.20); Glomerular Filtration Rate 11 (60-); Glucose, Blood 85 mg/dL (70-99); Magnesium, Blood 2.3 mg/dL (1.6-2.4); Phosphorus, Blood 4.3 mg/dL (2.5-4.9); Potassium, Blood 4.6 mmol/L (3.5-5.5); Sodium, Blood 134 mmol/L (136-145)
[2018-11-13] MEDS ORDERED: CEFTR1PB IV (12:03)
[2018-11-13] MEDS ORDERED: VANCOMYCIN HC1.25 GM IV (12:03)
--- NOTE | 2018-11-13 13:27 | NUR ---
PATIENT DISCHARGE THE PATIENT WAS DISCHHARGED HOME WITH HIS FAMILY, AFTER DISCHARGE INSTRUCTIONS WERE GIVEN TO THE PATIENT. THE PATIENT WAS INSTRUCTED TO FOLLOW UP WITH HIS PCP AND TO PICKUP HIS PRESCRIPTIN AT [facility] ARRANGED. THE PATIENT LEFT THE HOSPITAL WITHOUT CONCERN OR COMPLAINT.
== END 2018-11-13 13:25 | disposition home or self-care (01) | DRG 871 ==
LOC: ER 21:42 → PCU 23:05 → MEDS 11-09 15:54 → ENPENDDIS 11-13 11:01 → MEDS 11-13 13:25
PROVIDERS: Emergency Medicine; Internal Medicine Nephrology; Pharmacist; ADMIT Hospitalist
PROC: 5A1D70Z Performance of Urinary Filtration, Intermittent, Less than 6 Hours Per Day (ICD-10-PCS; principal; 2018-11-09)
PROC: 30233N1 Transfusion of Nonautologous Red Blood Cells into Peripheral Vein, Percutaneous Approach (ICD-10-PCS; 2018-11-09)
PROC: 5A1D70Z Performance of Urinary Filtration, Intermittent, Less than 6 Hours Per Day (ICD-10-PCS; 2018-11-11)
DX: A41.9 Sepsis, unspecified organism (principal); N18.6 End stage renal disease; G92 Toxic encephalopathy; I13.2 Hypertensive heart and chronic kidney disease with heart failure and with stage 5 chronic kidney disease, or end stage renal disease; I50.22 Chronic systolic (congestive) heart failure; E87.3 Alkalosis; E87.1 Hypo-osmolality and hyponatremia; R65.20 Severe sepsis without septic shock; E11.22 Type 2 diabetes mellitus with diabetic chronic kidney disease; Z99.2 Dependence on renal dialysis; D63.1 Anemia in chronic kidney disease; J44.9 Chronic obstructive pulmonary disease, unspecified; I25.10 Atherosclerotic heart disease of native coronary artery without angina pectoris; Z95.1 Presence of aortocoronary bypass graft; G47.33 Obstructive sleep apnea (adult) (pediatric); I73.9 Peripheral vascular disease, unspecified; G62.9 Polyneuropathy, unspecified; G89.29 Other chronic pain; E83.39 Other disorders of phosphorus metabolism; E86.9 Volume depletion, unspecified; E88.09 Other disorders of plasma-protein metabolism, not elsewhere classified; I95.9 Hypotension, unspecified
CPT/HCPCS: 36415; 36600; 71260; 74177; 80053; 80069; 80202; 82803; 82947; 83605; 83690; 83735; 85014; 85018; 85025; 86850; 86900; 86901; 86923; 87040; 87804; 93005; 93010; 94660; 94762; 96361-59; 96365-59; 96375-59; 99285-25; J0881; J1644; J1956; J2405; J2543; J3010; J3370; J7030; J7050; P9016; Q9967

== ENCOUNTER 2018-11-16 12:06 | Emergency (ER) | payer MEDICARE ==
[~2018-11-16] VITALS: Ht 162.6 cm; Wt 86.2 kg
[~2018-11-16 12:06] MED LIST changes: +CALC.25; +CEFTR1PB IV; +Calcium Acetat667 MG PO; +LACT10SY PO; +MIRALAX17 GM PO; +NITR.4SL SL; +OXYC5 PO; +Oxycodone-Apap1 EAC3 PO; +VANCOMYCIN HC1.25 GM IV; +Vitamin D2000 UNIT PO
== END 2018-11-16 13:43 | disposition home or self-care (01) ==
LOC: ER 12:06
DX: K65.1 Peritoneal abscess (principal); Z79.899 Other long term (current) drug therapy; E11.9 Type 2 diabetes mellitus without complications; E78.5 Hyperlipidemia, unspecified; Z87.891 Personal history of nicotine dependence; Z88.5 Allergy status to narcotic agent
CPT/HCPCS: 10060; 99282-25

== ENCOUNTER → 2018-11-17 | Outpatient (CLI) | payer MEDICARE | END | disposition home or self-care (01) | LOC: LAB SHORT 11:55 → LAB EV 11:55 | DX: L03.311 Cellulitis of abdominal wall (principal) | CPT/HCPCS: 87070; 87075; 87205; 87206 ==

== ENCOUNTER 2018-11-18 18:06 | Emergency (ER) | payer MEDICARE ==
[~2018-11-18] VITALS: Ht 180.3 cm; Wt 88.0 kg
[2018-11-18 19:24] LABS: Hematocrit 32.7 % (37.0-53.0); Mean Corpuscular HGB 31.2 pg (26.0-34.0); Mean Corpuscular HGB Conc 30.6 g/dL (31.5-36.5); Mean Platelet Volume 9.8 fL (9.1-12.4); Platelet Count 360 K/mm3 (150-400); RDW Standard Deviation 60.2 fL (35.1-46.3); Red Blood Cell Count 3.21 M/mm3 (4.30-5.90); White Blood Cell Count 10.77 K/mm3 (4.00-11.30)
[2018-11-18 19:25] LABS: Mean Corpuscular Volume 102 fL (80-100)
[2018-11-18 19:43] LABS: Bun/Creatinine Ratio 4.3 (12.0-20.0); Calcium, Blood 10.6 mg/dL (8.5-10.1); Creatinine, Blood 5.62 mg/dL (0.60-1.20); Potassium, Blood 3.8 mmol/L (3.5-5.5)
== END 2018-11-18 20:36 | disposition home or self-care (01) ==
LOC: ER 18:06
PROVIDERS: Emergency Medicine
DX: K91.841 Postprocedural hemorrhage of a digestive system organ or structure following other procedure (principal); J44.9 Chronic obstructive pulmonary disease, unspecified; N18.6 End stage renal disease; Z87.891 Personal history of nicotine dependence
CPT/HCPCS: 36415; 80048; 85027; 86850; 86900; 86901; 99283

== ENCOUNTER 2019-02-08 08:42 | Day surgery (SDC) | payer MEDICARE ==
[~2019-02-08] VITALS: Ht 165.1 cm; Wt 78.4 kg
--- NOTE | 2019-02-08 09:46 | NUR ---
02/08/19 0946 Tanisha Zheng CHECKED IN ON PATIENT AND HE WAS SLEEPING. IN CHAIR AT BEDSIDE. EXPRESSED THAT THEY HAD NO NEEDS AT THIS TIME. I DID OFFER PATIENT ANOTHER WARM BLANKET AND HE DECLINED STATED HE WAS FINE
--- NOTE | 2019-02-08 10:09 | NUR ---
02/08/19 Kendall9 Tanisha Zheng O2 VIA POM MASK AT 10L
== END 2019-02-08 11:00 | disposition home or self-care (01) ==
LOC: ORSCSDS 08:42
PROVIDERS: Internal Medicine Gastroenterology
PROC: 0DB68ZX Excision of Stomach, Via Natural or Artificial Opening Endoscopic, Diagnostic (ICD-10-PCS; principal; 2019-02-08 10:00)
PROC: 0D758ZZ Dilation of Esophagus, Via Natural or Artificial Opening Endoscopic (ICD-10-PCS; principal; 2019-02-08 10:00)
DX: R13.10 Dysphagia, unspecified (principal); K29.70 Gastritis, unspecified, without bleeding; K22.2 Esophageal obstruction; I10 Essential (primary) hypertension; I25.10 Atherosclerotic heart disease of native coronary artery without angina pectoris; J44.9 Chronic obstructive pulmonary disease, unspecified; G47.33 Obstructive sleep apnea (adult) (pediatric); Z87.891 Personal history of nicotine dependence; Z99.81 Dependence on supplemental oxygen; E11.9 Type 2 diabetes mellitus without complications; E78.00 Pure hypercholesterolemia, unspecified; Z79.899 Other long term (current) drug therapy; Z79.82 Long term (current) use of aspirin
CPT/HCPCS: 82947; 88305; 88342; J2704; J7120

== ENCOUNTER 2019-03-18 00:24 | Day surgery (SDC) | payer MEDICARE ==
--- NOTE | 2019-03-18 09:55 | NUR ---
CALL TO DR ERICKSON.PTS LUNGS ARE COARSE WITH WHEEZES ADD CRACKLES.
--- NOTE | 2019-03-18 10:50 | NUR ---
PT DISCHARGED FROM DEPARTMENT. BUMEX 5 MG IV GIVEN ALONG WITH METOLASONE GIVEN PO. PT HAS NOT VOIDED AT DISCHARGE. VS STABLE. PT TO DRIVE SELF TO DIALYSIS.
== END 2019-03-18 10:50 | disposition home or self-care (01) ==
LOC: ATC 00:24
DX: I12.0 Hypertensive chronic kidney disease with stage 5 chronic kidney disease or end stage renal disease (principal); N18.6 End stage renal disease; D63.1 Anemia in chronic kidney disease; Z99.2 Dependence on renal dialysis
CPT/HCPCS: 36415; 36430; 86850; 86900; 86901; 86923; 96374; J7050; P9016

== ENCOUNTER 2019-03-25 02:11 | Day surgery (SDC) | payer MEDICARE | END 2019-03-25 11:15 | disposition home or self-care (01) | LOC: ATC 02:11 | DX: I12.0 Hypertensive chronic kidney disease with stage 5 chronic kidney disease or end stage renal disease (principal); N18.6 End stage renal disease; D63.1 Anemia in chronic kidney disease; Z79.899 Other long term (current) drug therapy; Z99.2 Dependence on renal dialysis | CPT/HCPCS: 36415; 36430; 85018; 86850; 86900; 86901; 86923; J7050; P9016 ==

== ENCOUNTER 2019-07-04 18:29 | Inpatient (IN) | payer MEDICARE ==
[~2019-07-04] VITALS: Ht 165.1 cm; Wt 78.0 kg
[~2019-07-04 18:29] MED LIST changes: -ASPI81CH PO; +Aspirin EC81 MG PO; -Fish Oil 10001000 MG PO; +Fish Oil Conc1000 MG PO
[2019-07-04] MEDS ORDERED: NYST100000 (18:44)
[2019-07-04] MEDS ORDERED: FLUC150A PO (18:44)
[2019-07-04] MEDS ORDERED: Ventolin/Prove6.7 GM INH (18:45)
[2019-07-04 19:11] LABS: BASOPHILS ABSOLUTE AUTO 0.05 K/mm3 (0.00-0.23); BASOPHILS PERCENT AUTO 1 % (0-2); EOSINOPHILS ABSOLUTE AUTO 0.25 K/mm3 (0.00-0.68); EOSINOPHILS PERCENT AUTO 4 % (0-6); Hematocrit 39.1 % (37.0-53.0); Hemoglobin 11.6 g/dL (13.5-17.5); IMMATURE GRAN ABSOLUTE AUTO 0.02 K/mm3 (0.00-0.10); IMMATURE GRAN PERCENT AUTO 0 % (0-1); LYMPHOCYTES ABSOLUTE AUTO 1.41 K/mm3 (0.84-5.20); LYMPHOCYTES PERCENT AUTO 20 % (21-46); MONOCYTES ABSOLUTE AUTO 0.37 K/mm3 (0.16-1.47); MONOCYTES PERCENT AUTO 5 % (4-13); Mean Corpuscular HGB 28.4 pg (26.0-34.0); Mean Corpuscular HGB Conc 29.7 g/dL (31.5-36.5); Mean Corpuscular Volume 96 fL (80-100); Mean Platelet Volume 9.8 fL (9.1-12.4); NEUTROPHILS PERCENT AUTO 71 % (41-73); Platelet Count 244 K/mm3 (150-400); RDW Coefficient Variation 18.6 % (11.7-14.2); Red Blood Cell Count 4.09 M/mm3 (4.30-5.90)
[2019-07-04 19:28] LABS: Albumin, Blood 2.8 g/dL (3.4-5.0); Albumin/Globulin Ratio 0.4 (0.8-1.8); Bilirubin, Total 1.1 mg/dL (0.1-1.0); Bun/Creatinine Ratio 4.9 (12.0-20.0); Calcium, Blood 9.5 mg/dL (8.5-10.1); Creatinine, Blood 3.66 mg/dL (0.60-1.20); Globulin, Blood 6.8 g/dL (2.2-4.0); Potassium, Blood 3.7 mmol/L (3.5-5.5); Total Protein, Blood 9.6 g/dL (6.4-8.2); Troponin I 0.344 ng/mL (0.000-0.040)
[2019-07-04] MEDS ORDERED: CALCIUM ACETAT667 M2 PO (19:50)
[2019-07-04] MEDS ORDERED: ROPINIROLE HCL0.5 MG PO (19:50)
[2019-07-04] MEDS ORDERED: Isosorbide Mono60 MG PO (19:54)
[2019-07-04] MEDS ORDERED: GABA100 PO (19:54)
[2019-07-04] MEDS ORDERED: TAMSULOSIN HCL0.4 M1 PO (19:54)
[2019-07-04] MEDS ORDERED: LATANOPROST2.5 M1 RIGHTEYE (19:54)
[2019-07-04] MEDS ORDERED: OXYC5 PO (19:57)
[2019-07-04 22:15] LABS: International Normalized Ratio 1.04
--- NOTE | 2019-07-04 22:25 | NUR ---
2225: PT ARRIVES TO [facility] VIA GOURNEY FROM ER AND IS SLIDE SHEET TRANSFERRED TO BED. PT TOLERATES WELL AND HAS GOOD BED MOBILITY; FAMILY AT BEDSIDE. TELE PLACED AND PT APPEARS HYPOTENSIVE THAT HE REPORTS IS HIS BASELINE AND IS ASYMPTOMATIC. 3.5L TO 4L O2 VIA NC MAINTAINS SPO2 >90%. PT AND FAMILY ORIENTED TO ROOM, BED, CALL SYSTEM AND VERBALIZE UNDERSTANDING. SALT GRINDER ASSISTS WITH ADMIT.
[2019-07-04] MEDS ORDERED: Ropinirole HCl1 MG (22:59)
[2019-07-04] MEDS ORDERED: Fluocinonide15 GM (23:05)
[2019-07-04] MEDS ORDERED: MIDO5 PO (23:06)
[2019-07-04] MEDS ORDERED: Rena-Vite Tabl0.8 MG PO (23:07)
[2019-07-04] MEDS ORDERED: TOCO1000 PO (23:08)
[2019-07-04] MEDS ORDERED: CYAN500 PO (23:08)
[2019-07-04] MEDS ORDERED: NORTHERA100 MG PO (23:10)
[2019-07-04] MEDS ORDERED: NYST100000 MT ×2 (23:12→23:13)
[2019-07-05 03:47] LABS: BASOPHILS ABSOLUTE AUTO 0.06 K/mm3 (0.00-0.23); BASOPHILS PERCENT AUTO 1 % (0-2); EOSINOPHILS ABSOLUTE AUTO 0.29 K/mm3 (0.00-0.68); EOSINOPHILS PERCENT AUTO 4 % (0-6); Hematocrit 34.1 % (37.0-53.0); Hemoglobin 10.2 g/dL (13.5-17.5); IMMATURE GRAN ABSOLUTE AUTO 0.02 K/mm3 (0.00-0.10); IMMATURE GRAN PERCENT AUTO 0 % (0-1); LYMPHOCYTES ABSOLUTE AUTO 1.74 K/mm3 (0.84-5.20); LYMPHOCYTES PERCENT AUTO 23 % (21-46); MONOCYTES ABSOLUTE AUTO 0.66 K/mm3 (0.16-1.47); MONOCYTES PERCENT AUTO 9 % (4-13); Mean Corpuscular HGB 28.6 pg (26.0-34.0); Mean Corpuscular HGB Conc 29.9 g/dL (31.5-36.5); Mean Corpuscular Volume 96 fL (80-100); Mean Platelet Volume 10.4 fL (9.1-12.4); NEUTROPHILS ABSOLUTE AUTO 4.87 K/mm3 (1.96-9.15); NEUTROPHILS PERCENT AUTO 64 % (41-73); Platelet Count 220 K/mm3 (150-400); RDW Coefficient Variation 18.5 % (11.7-14.2); RDW Standard Deviation 63.3 fL (35.1-46.3); Red Blood Cell Count 3.57 M/mm3 (4.30-5.90); White Blood Cell Count 7.64 K/mm3 (4.00-11.30)
[2019-07-05 04:12] LABS: Bun/Creatinine Ratio 5.3 (12.0-20.0); Calcium, Blood 8.7 mg/dL (8.5-10.1); Creatinine, Blood 4.34 mg/dL (0.60-1.20); Potassium, Blood 4.5 mmol/L (3.5-5.5)
[2019-07-05 04:14] LABS: Troponin I 2.85 ng/mL (0.000-0.040)
--- NOTE | 2019-07-05 04:52 | NUR ---
5589 TROPONIN: CALL TO DR. LINARES FOR TROPONIN INCREASE TO 2.85 FROM ADMIT VALUE OF 0.34. PHYSICIAN TO INPUT ORDERS AND CARDIOLOGY CONSULT.
--- NOTE | 2019-07-05 06:27 | NUR ---
SUMMARY: NEW ADMIT NSTEMI ON DR. LINARES, DR. ERICKSON SERVICE WITH DR. VERNON CONSULT. PT CONTINUES TO BE HYPOTENSIVE @ TIMES, IS HIS BASELINE, BUT NOT TACHYCARDIC; AFEBRILE, 3-4L O2 VIA NC HOME FLOWRATE WITH NOC CPAP USE. PT DENIES CHEST PAIN, HEADACHE, DIZZINESS OR INCREASED SOB THIS SHIFT. MAINTAINS SR RATE IN 80'S. HEPARIN GTT AT 13 UNITS/KG/HR. AM TROPONIN 2.85 AND CARDIOLOGY TO CONSULT LATER TODAY. FISTULA LUE GOOD BRUIT/THRILL AND POST DIALYSIS DRESSING REMAINS C/D/I. REPEAT TROPONINS, MONITOR HEPARIN AND AWAIT CARDIOLOGY CONSULT LATER THIS DAY.
--- NOTE | 2019-07-05 06:38 | NUR ---
0638: DR. DRE SHELTON ON PT. FAINT CRACKLES UPPER LOBES, NO COUGH, MAINTAINS SPO2 92-97% ON 4L O2. DR. ERICKSON TO F/U WITH CHEST XRAY.
[2019-07-05 08:47] LABS: International Normalized Ratio 1.13; Prothrombin Time Results 11.8 Sec (9.7-11.5)
--- NOTE | 2019-07-05 12:45 | NUR ---
SPOKE WTIH DR. ERICKSON ABOUT ANGIOGRAM. PLAN FOR DIALYSIS AFTER PROCEDURE. PT TAKEN BY [facility] STAFF FOR ANGIOGRAM.
--- NOTE | 2019-07-05 15:20 | NUR ---
UPDATE PT RETURNED FROM CADDIE SUPERVISOR. BP LOW, BUT IMPROVING, O2 SATS REMAIN ABOVE 90% ON 4L NC. HR NSR. PT HAS RIGHT GROIN SITE WITH NO HEMATOMA, BLEEDING, OR BRUISING NOTED. DIALYSIS NURSE IN ROOM TO START TREATMENT. WILL CONTINUE TO MONITOR CLOSELY.
--- NOTE | 2019-07-05 17:52 | NUR ---
SHIFT SUMMARY PT ALERT AND ORIENTED. VS STABLE. 02 SATS REMAIN ABOVE 90% ON RA. HR NSR. PT DENIES ANY CP. HOB AT 30 DEGREES AT THIS TIME. RIGHT GROIN FREE FROM HEMATOMA, BRUISING, OR BLEEDING. PT HAD DIALYSIS TODAY AFTER ANGIOGRAM. FAMILY AT BEDSIDE. WILL CONTINUE TO MONITOR AND REPORT TO ONCOMING RN. CALL LIGHT IN REACH.
[2019-07-06 03:55] LABS: Hematocrit 32.4 % (37.0-53.0); Hemoglobin 9.7 g/dL (13.5-17.5)
[2019-07-06 04:08] LABS: Albumin, Blood 2.4 g/dL (3.4-5.0); Anion Gap 8 mmol/L (6-16); Blood Urea Nitrogen 22 mg/dL (8-24); Bun/Creatinine Ratio 4.9 (12.0-20.0); CO2, Blood 32 mmol/L (21-32); Calcium, Blood 9.3 mg/dL (8.5-10.1); Chloride, Blood 95 mmol/L (98-108); Creatinine, Blood 4.47 mg/dL (0.60-1.20); Glomerular Filtration Rate 14 (60-); Glucose, Blood 81 mg/dL (70-99); Magnesium, Blood 2.1 mg/dL (1.6-2.4); Phosphorus, Blood 5.2 mg/dL (2.5-4.9); Potassium, Blood 4.4 mmol/L (3.5-5.5); Sodium, Blood 135 mmol/L (136-145)
--- NOTE | 2019-07-06 05:24 | NUR ---
[place] SUMMARY PT SLEEPING IN ROOM COMFORTABLY AT THIS TIME. NO ACUTE CHANGES IN STATUS T/O NIGHT. PT SLEPT WELL W/ CPAP ON T/O NIGHT. RESP EVEN UNLABORED ON CPAP W/ SATS >92%. PT DENIED ANY CP OR SOB. DENIES OTHER NEEDS. GROIN SITE WNL NO HEMATOMA NOTED. PT DENIES PAIN TO AREA. NO BLEEDING. CALL LIGHT IN REACH.
--- NOTE | 2019-07-06 07:49 | NUR ---
AM NOTE. ASSUMED CARE OF PT APROX 0700. PT IS A&Ox3 AND S/P ANGIO WITH NO INTERVENTIONS. PT HAS R GROIN SITE, SITE IS HAS NO SWELLING, BLEEDING OR HEMATOMA NOTED. PEDAL PULSES FAINT BUT PALPABLE. PT DENIES ANY PAIN AT THIS TIME EXCEPT CHRONIC BACK PAIN. PT IS HYPOTENSIVE, BUT OTHER VS STABLE, PT IS NOT SYMPTOMATIC AND THIS APPEARES TO BE HIS TREND. PT DENIES CHEST PAIN/PRESSURE N/V OR SOB, PT IS ON 4L NC WITH O2 SATS >91%. WILL CONTINUE TO MONITOR.
--- NOTE | 2019-07-06 10:15 | NUR ---
AUTOMATION ENGINEER CALLED TO SAY THEY ARE HAVING TROUBLE WITH BLEEDING GROIN SITE. WE CALLED BACK 1000, THEY SAID DR VICTORIA IS ON THE WAY TO EVALUATE THE SITUATION. THAT THE PT MAY BE TAKEN BACK TO RESEARCH TEST ENGINE OPERATOR. WAITING TO SEE WHAT THE DECISION IS.
--- NOTE | 2019-07-06 14:13 | NUR ---
PT UPDATE.,... APROX 0900 PT GOT UP AND AMBULATED TO THE BATHROOM, WHEN PT RETURNED FROM THE BATHROOM HE WAS C/O OF NUMBNESS TO HIS RIGHT FOOT, THIS RN ASSESSED THE PT'S RIGHT AND LEFT FEET, THE PEDAL PULSE OF THE RIGHT FOOT WAS UNPALPABLE. THE DOPPLER WAS USED AND STILL NO PULSES WERE FOUND, THIS WAS VERIFIED BY ANOTHER RN ABDULAZIZ. PT STATED THE NUMBNESS AND PAIN WAS NOW RUNNING FROM THE ANGIO SITE TO HIS FOOT. PT WAS C/O OF 10/10 PAIN, PT WAS WRITHING ON THE BED AND MOANING. PT WAS MEDICATED PER EMAR AND THE PROVIDER WAS CALLED. ORDERS OBTAINED FOR THE PT TO BE NPO, ORDERS FOR HEPARIN BOLUS AND GTT, AND DR. VICTORIA WAS NOTIFIED. PT'S VS STABLE EXCEPT PT'S BP HAS BEEN IN THE 90'S SYSTOLIC. THIS HAS BEEN THE PT'S TREND BUT WILL MONITOR CLOSLY. CALL LIGHT IN REACH, WILL CONTINUE TO MONITOR.
--- NOTE | 2019-07-06 18:03 | NUR ---
SHIFT SUMMARY.. PT'S RIGHT FOOT/LEG HAS IMPROVED SINCE THE HEPARIN GTT WAS STARTED. PT'S RIGHT FOOT AND TOES IS NOT DUSKY/PURPLE AND IS WARMER THAN IT WAS EARLIER IN THE SHIFT. CARDIOLOGY PROIVDER AT THE BEDSIDE, DOPPLER WAS USED AGAIN BUT WAS UNABLE TO FIND PEDAL PULSE. PT IS TO BE NPO AFTER MIDNIGHT FOR ANGIO IN THE AM. PT IS AGREEABLE TO THIS PLAN OF CARE. PT HAS BEEN MEDICATED PER EMAR FOR PAIN IN THE RIGHT LEG/FOOT. PT'S VS STABLE AT THIS TIME. PT DENIES CHEST PAIN/PRESSURE N/V OR SOB. PT'S AT THE BEDSIDE. CALL LIGHT IN REACH, BED IS LOCKED AND LOW WILL CONTINUE TO MONITOR UNTIL REPOORT IS GIVEN TO ONCOMING RN.
[2019-07-07 03:47] LABS: Hematocrit 32.5 % (37.0-53.0); Hemoglobin 9.8 g/dL (13.5-17.5)
[2019-07-07 04:03] LABS: Albumin, Blood 2.3 g/dL (3.4-5.0); Anion Gap 8 mmol/L (6-16); Blood Urea Nitrogen 36 mg/dL (8-24); Bun/Creatinine Ratio 6.2 (12.0-20.0); CO2, Blood 29 mmol/L (21-32); Calcium, Blood 9.1 mg/dL (8.5-10.1); Chloride, Blood 93 mmol/L (98-108); Creatinine, Blood 5.82 mg/dL (0.60-1.20); Glomerular Filtration Rate 10 (60-); Glucose, Blood 96 mg/dL (70-99); Magnesium, Blood 2.4 mg/dL (1.6-2.4); Phosphorus, Blood 6.3 mg/dL (2.5-4.9); Potassium, Blood 5.3 mmol/L (3.5-5.5); Sodium, Blood 130 mmol/L (136-145)
--- NOTE | 2019-07-07 05:41 | NUR ---
SHIFT SUMMARY PT SLEEPING IN ROOM COMFORTABLY AT THIS TIME. NO ACUTE CHANGES IN STATUS T/O NIGHT. PT SLEPT WELL AND DENIED NEEDS. PT WORE CPAP T/O NIGHT W/ SATS >92%. PT WAS MEDICATED ONCE FOR PAIN IN R LEG, REPORTS PAIN IS "CRAMPING" AND PT REPORTS HE CAN USUALLY "RUB THE CRAMP OUT" AND REPOSITIONING HELPS. PT DENIED ANY CP, R LEG IS STILL COOL TO TOUCH BUT VERY FAINT TIBIAL PULSES CAN STILL BE FOUND W/ DOPPLER. PEDAL PULSES STILL UNABLE TO BE ASSESSED. PT WAS NPO AT MIDNIGHT FOR REVASCULARIZATION WITH DR VICTORIA THIS AM. HEPARIN GTT INFUSING IN PIV PER PHARMACY PROTOCOL. CALL LIGHT IN REACH.
--- NOTE | 2019-07-07 08:44 | NUR ---
Assumed care Assumed care of pt at approx 0700; pt presents lying in bed, eyes closed. VSS. MD Palmer at bedside at initial assessment; plan for HD today before revas procedure today. Pt able to take all medications whole this morning but with complaints of mild nausea after medications given. Nausea self resolved. Pt complains of continued pain to the RLE, skin is cool to touch, dusky, faint pulses. Heating pad placed to pts RLE to aid with comfort and relief. Pt is alert but with intermittant lethargy, tachypneic but with lungs clear to BUL and DIM with moist to BLL. Breathings is even and unlabored. Pt to go to HD at 0900. Will continue to monitor.
--- NOTE | 2019-07-07 12:21 | NUR ---
ARRIVAL TO ICU 1150- PT ARRIVES FROM COIL WRAPPER TO ICU AT THIS TIME. HE IS DROWSY BUT EASILY AWAKENS. COUNSELED PT ON NEED TO REMAIN FLAT WITH LEGS STRAIGHT. SHEATH SECURED IN L GROIN WITH HEPARIN GTT INFUSING AT 300 UNITS/HR AND CATHFLO AT 1 MG/HR PER ORDERS. FAMILY UPDATED AT BEDSIDE. NO PULSES DOPPELERED OR PALPATED IN R FOOT. PT HEARD WITH DOPPLER IN L FOOT. VSS. WILL CONTINUE TO MONITOR.
[2019-07-07 12:41] LABS: Source, Urine Catheter
[2019-07-07 12:48] LABS: Blood, Urine 2+ (Neg); Glucose Qualitative, Urine Neg (Neg); Ketones, Urine 1+ (Neg); Leukocyte Esterase, Urine 1+ (Neg); Nitrite, Urine Neg (Neg); Protein, Urine 4+ (Neg); Urobilinogen, Urine NORM (Normal)
[2019-07-07 13:08] LABS: Appearance, Urine Cloudy (Clear); Bilirubin, Urine 1+ (Neg); Color, Urine Yellow (P-Yellow)
[2019-07-07 13:09] LABS: Bacteria Many /hpf; Mucus Light (0-Heavy)
[2019-07-07 13:11] LABS: Amorphous Mod (0-Heavy); Squamous Epithelial Cells Rare /hpf (Few)
--- NOTE | 2019-07-07 16:10 | NUR ---
REASSESSMENT DIALYSIS STOPPED AT THIS TIME AND PT TAKEN BACK TO RIGGER CHIEF. WITH RIGGER CHIEF STAFF. VSS.
--- NOTE | 2019-07-07 16:57 | NUR ---
DIALYSIS PLANNED FOR DIALYSIS FOR PT THIS AM PER ORDERS WITH TECHNICAL SUPPORT TECHNICIAN PROCEDURE TO BE DONE AFTER. TIME CHANGED FOR THE PROCEDURE, TAKEN EARLIER THAN PLANNED. PULLED ANOTHER PT IN HIS SLOT AND DIALYZED HIM. TOLD I WOULD NEED TO DIALYZE THE PT AFTER THE PROCEDURE. PT WENT TO ICU AFTER PROCEDURE. SET UP THE MACHINE AND WENT TO ICU. CONNECTED PT TO TX. AFTER A 54 MIN RUN AT 500 DFR AND 350 BFR THE ICU NURSE AND I WAS TOLD HE SHOULD NOT HAVE NOT BEEN ON TX DUE TO HEPARIN TX. DC'ED THE TX PER PROTOCAL AND PT RETURNED TO TECHNICAL SUPPORT TECHNICIAN.
--- NOTE | 2019-07-08 00:38 | NUR ---
ASSUMED PT CARE FROM NIKI SANDRA AT 1915 PT ARRIVED FROM RN INTERNAL MEDICINE S/P ANGIOGRAM OF RLE SECONDARY TO ARTERIAL OCCLUSION. LEFT GROIN ACCESS WAS CLOSED VIA ANGIOSEAL DEVICE; SITE SOFT, NON-TENDER WITH NO HEMATOMA NOTED. UNABLE TO PALPATE PULSES TO BILATERAL FEET. OBTAINED POSTERIOR TIBIAL PULSES BILATERALLY; HOWEVER, FLOW WAS INTERMITTENT. UNABLE TO OBTAIN BILATERAL PEDAL PULSES WITH DOPPLER. RIGHT GROIN ACCESS STABLE WITH MINIMAL BRUISING AND A HEMATOMA THAT IS LESS THAN 3CM; STERI STRIPS AND CHG DRESSING IS CDI. DR. VICTORIA TO BEDSIDE SHORTLY AFTER PT ARRIVED ON UNIT AND STATED THAT WE WOULD MOST LIKELY NOT OBTAIN ANY PULSES TO LOWER EXTREMITIES SECONDARY TO PT'S SIGNIFICANT OCCLUSIVE ARTERIAL DISEASE. DR. 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 THEREFORE, PLAN IS TO TRANSFER TO [facility] FOR VASCULAR SURGERY. FAMILY AT BEDSIDE DURING TRANSFERING OF CARE DISCUSSION WITH DR. VICTORIA. FAMILY AGREE WITH DECISION TO TRANSFER. FRANCIA CARPENTER NP AT BEDSIDE TO INITIATE TRANSFER OF PATIENT. AT APPROXIMATELY 2000 PT HAD A COUGHING EPISODE DUE TO HIS "SALIVA". WHEN LEFT GROIN WAS ASSESSED IT WAS NOTED TO HAVE OOZING. SITE REMAINED SOFT, NON-TENDER WITH NO HEMATOMA NOTED. THEREFORE; APPLIED GENTLE PRESSURE OVER INSERTION SITE, CHANGED DRESSING UTILIZING STERILE TECHNIQUE, AND APPLIED A SAND BAG TO MAINTAIN PRESSURE TO SITE. OOZING SLOWED DOWN AND STABILIZED; HOWEVER, DRESSING CHANGED AGAIN PRIOR TO TRANSFER IN ORDER FOR EMS AND MEDICAL STAFF AT [facility] TO MONITOR OOZING OUTPUT MORE CLOSELY. AT APPROXIMATELY 2230 A BED ASSIGNMENT WAS GIVEN. REPORT CALLED TO ESTEFANI AT 2250. NOTIFIED OF BED ASSIGNMENT AT 2300. EMS ARRIVED APPROXIMATELY 2330 AND LEFT THE BUILDING AROUND 0000.
== END 2019-07-08 00:01 | disposition short-term general hospital (02) | DRG 270 ==
LOC: ER 18:29 → PCU 20:03 → ICUE 07-07 11:30
PROVIDERS: Emergency Medicine; Internal Medicine Cardiovascular Disease; Internal Medicine Nephrology; Radiology Diagnostic Radiology; ADMIT Hospitalist
PROC: 4A023N7 Measurement of Cardiac Sampling and Pressure, Left Heart, Percutaneous Approach (ICD-10-PCS; principal; 2019-07-05)
PROC: B2111ZZ Fluoroscopy of Multiple Coronary Arteries using Low Osmolar Contrast (ICD-10-PCS; 2019-07-05)
PROC: B2181ZZ Fluoroscopy of Left Internal Mammary Bypass Graft using Low Osmolar Contrast (ICD-10-PCS; 2019-07-05)
PROC: B41J1ZZ Fluoroscopy of Other Lower Arteries using Low Osmolar Contrast (ICD-10-PCS; 2019-07-05)
PROC: 04CK3ZZ Extirpation of Matter from Right Femoral Artery, Percutaneous Approach (ICD-10-PCS; 2019-07-07)
PROC: B41F1ZZ Fluoroscopy of Right Lower Extremity Arteries using Low Osmolar Contrast (ICD-10-PCS; 2019-07-07)
DX: I21.4 Non-ST elevation (NSTEMI) myocardial infarction (principal); N18.6 End stage renal disease; I50.22 Chronic systolic (congestive) heart failure; Z99.81 Dependence on supplemental oxygen; I25.2 Old myocardial infarction; I25.10 Atherosclerotic heart disease of native coronary artery without angina pectoris; E78.5 Hyperlipidemia, unspecified; G47.33 Obstructive sleep apnea (adult) (pediatric); Z95.5 Presence of coronary angioplasty implant and graft; G62.9 Polyneuropathy, unspecified; H91.93 Unspecified hearing loss, bilateral; Z87.891 Personal history of nicotine dependence; J44.9 Chronic obstructive pulmonary disease, unspecified; I25.5 Ischemic cardiomyopathy; Z99.2 Dependence on renal dialysis; I95.9 Hypotension, unspecified; I35.0 Nonrheumatic aortic (valve) stenosis; E11.22 Type 2 diabetes mellitus with diabetic chronic kidney disease; E11.51 Type 2 diabetes mellitus with diabetic peripheral angiopathy without gangrene; E87.5 Hyperkalemia
CPT/HCPCS: 36415; 37186; 37211; 37224; 51702; 71045; 75625; 75716; 75774; 76937; 80048; 80053; 80069; 81001; 83735; 84484; 85014; 85018; 85025; 85384; 85610; 85730; 86850; 86900; 86901; 87086; 93005; 93010; 93459; 94640; 94660; 94762; 96374; 99152; 99153; 99285-25; C1725; C1751; C1760; C1769; C1887; C1894; J0690; J0881; J1644; J2250; J2405; J2997; J3010; J7030; J7040; Q9967

== ENCOUNTER 2019-09-02 08:16 | Day surgery (SDC) | payer MEDICARE ==
[~2019-09-02] VITALS: Ht 165.1 cm; Wt 79.5 kg
[~2019-09-02 08:16] MED LIST changes: +CALCIUM ACETAT667 M2 PO; +CYAN500 PO; +FLUC150A PO; +Fluocinonide15 GM; +Isosorbide Mono60 MG PO; +LATANOPROST2.5 M1 RIGHTEYE; +MIDO5 PO; +NORTHERA100 MG PO; +NYST100000; +NYST100000 MT; +ROPINIROLE HCL0.5 MG PO; +Rena-Vite Tabl0.8 MG PO; +Ropinirole HCl1 MG; +TAMSULOSIN HCL0.4 M1 PO; +Ventolin/Prove6.7 GM INH
[2019-09-02] MEDS ORDERED: OMEP20ER (08:56)
--- NOTE | 2019-09-02 09:21 | NUR ---
09/02/[address] AWARE MOST RECENT POTASSIUM DRAWN ON AUG 03 RESULTS 4.5
--- NOTE | 2019-09-02 13:08 | NUR ---
09/02/19 1308 Tanisha Zheng LATE ENTRY----PRIOR TO DISCHARGE, THE PATIENTS BLOOD PRESSURES POST OP WERE REPORTED TO DR MANJARREZ. PATIENT HAS NO DIZZINESS OR OTHER SYMPTOMS AND HE VERBALIZED TO ME HE IS READY TO GO HOME. THIS WAS ALSO REPORTED TO DR MANJARREZ AND HE GAVE THE OK TO DISCHARGE PATIENT
[2019-09-05] MEDS ORDERED: ALLO100 PO (18:25)
[2019-09-05] MEDS ORDERED: Aspir 8181 MG PO (18:26)
[2019-09-05] MEDS ORDERED: ATEN25 PO (18:26)
[2019-09-05] MEDS ORDERED: Crestor20 MG PO (18:27)
[2019-09-05] MEDS ORDERED: VITAMIN D32000 UNI1 PO (18:27)
[2019-09-05] MEDS ORDERED: MERIBIN5 MG PO (18:27)
[2019-09-05] MEDS ORDERED: TAMS.4ER PO (18:29)
[2019-09-05] MEDS ORDERED: Fish Oil Conc1000 MG PO (18:29)
[2019-09-05] MEDS ORDERED: GABA100 PO (18:30)
[2019-09-05] MEDS ORDERED: ISOSORBIDE MONO60 MG PO (18:30)
[2019-09-05] MEDS ORDERED: Percocet 5-3251 EACH PO (18:31)
[2019-09-05] MEDS ORDERED: Midodrine HCl10 MG PO (18:31)
[2019-09-05] MEDS ORDERED: SEVEC800 PO (18:32)
[2019-09-05] MEDS ORDERED: CLOP75 PO (18:32)
[2019-09-05] MEDS ORDERED: Calcium Acetat667 MG PO (18:32)
[2019-09-05] MEDS ORDERED: Vitamin E400 UNI4 PO (18:33)
[2019-09-05] MEDS ORDERED: Ropinirole HCl0.5 MG PO (18:33)
[2019-09-05] MEDS ORDERED: SINEMET 25-1001 EACH PO (18:33)
== END 2019-09-02 11:23 | disposition home or self-care (01) ==
LOC: ORSCSDS 08:16
PROVIDERS: Internal Medicine Gastroenterology
PROC: 0D758ZZ Dilation of Esophagus, Via Natural or Artificial Opening Endoscopic (ICD-10-PCS; principal; 2019-09-02 09:15)
DX: R13.10 Dysphagia, unspecified (principal); K44.9 Diaphragmatic hernia without obstruction or gangrene; I25.10 Atherosclerotic heart disease of native coronary artery without angina pectoris; G47.33 Obstructive sleep apnea (adult) (pediatric); E11.22 Type 2 diabetes mellitus with diabetic chronic kidney disease; N18.9 Chronic kidney disease, unspecified; I10 Essential (primary) hypertension; E78.00 Pure hypercholesterolemia, unspecified; Z95.1 Presence of aortocoronary bypass graft; Z79.01 Long term (current) use of anticoagulants; Z79.82 Long term (current) use of aspirin; Z79.899 Other long term (current) drug therapy
CPT/HCPCS: 82947; 84132; J2250; J2370; J2704; J7030

== ENCOUNTER 2019-09-08 08:48 | Inpatient (IN) | payer MEDICARE ==
[~2019-09-08] VITALS: Ht 165.1 cm; Wt 86.9 kg
[~2019-09-08 08:48] MED LIST changes: +Aspir 8181 MG PO; +Crestor20 MG PO; +ISOSORBIDE MONO60 MG PO; +Midodrine HCl10 MG PO; +Percocet 5-3251 EACH PO; +SINEMET 25-1001 EACH PO; +VITAMIN D32000 UNI1 PO; +Vitamin E400 UNI4 PO
[2019-09-08 09:20] LABS: BASOPHILS ABSOLUTE AUTO 0.04 K/mm3 (0.00-0.23); BASOPHILS PERCENT AUTO 1 % (0-2); EOSINOPHILS ABSOLUTE AUTO 0.05 K/mm3 (0.00-0.68); EOSINOPHILS PERCENT AUTO 1 % (0-6); Hematocrit 37.1 % (37.0-53.0); Hemoglobin 11.3 g/dL (13.5-17.5); IMMATURE GRAN ABSOLUTE AUTO 0.04 K/mm3 (0.00-0.10); IMMATURE GRAN PERCENT AUTO 1 % (0-1); LYMPHOCYTES ABSOLUTE AUTO 1.39 K/mm3 (0.84-5.20); LYMPHOCYTES PERCENT AUTO 20 % (21-46); MONOCYTES ABSOLUTE AUTO 0.55 K/mm3 (0.16-1.47); MONOCYTES PERCENT AUTO 8 % (4-13); Mean Corpuscular HGB 29.9 pg (26.0-34.0); Mean Corpuscular HGB Conc 30.5 g/dL (31.5-36.5); Mean Corpuscular Volume 98 fL (80-100); NEUTROPHILS ABSOLUTE AUTO 4.85 K/mm3 (1.96-9.15); NEUTROPHILS PERCENT AUTO 70 % (41-73); NRBC ABSOLUTE 0.05 K/mm3 (0.00-0.02); NRBC Auto 0.7 /100 WBC (0.0-0.2); Platelet Count 172 K/mm3 (150-400); RDW Coefficient Variation 21.7 % (11.7-14.2); RDW Standard Deviation 75.8 fL (35.1-46.3); Red Blood Cell Count 3.78 M/mm3 (4.30-5.90); White Blood Cell Count 6.92 K/mm3 (4.00-11.30)
[2019-09-08 09:34] LABS: Albumin, Blood 2.4 g/dL (3.4-5.0); Albumin/Globulin Ratio 0.4 (0.8-1.8); Bilirubin, Total 1.3 mg/dL (0.1-1.0); Bun/Creatinine Ratio 6.3 (12.0-20.0); Calcium, Blood 8.9 mg/dL (8.5-10.1); Creatinine, Blood 3.99 mg/dL (0.60-1.20); Globulin, Blood 6.1 g/dL (2.2-4.0); Potassium, Blood 4.3 mmol/L (3.5-5.5); Total Protein, Blood 8.5 g/dL (6.4-8.2)
[2019-09-08 09:51] LABS: Troponin I 2.33 ng/mL (0.000-0.040)
[2019-09-08] MEDS ORDERED: ROPINIROLE HCL0.5 MG PO (10:46)
[2019-09-08] MEDS ORDERED: OMEP20ER PO (10:46)
[2019-09-08] MEDS ORDERED: NORTHERA100 MG PO (10:46)
[2019-09-08 11:04] LABS: International Normalized Ratio 1.55; Prothrombin Time Results 16.2 Sec (9.7-11.5)
[2019-09-08] MEDS ORDERED: ROSUVASTATIN CA20 MG PO (11:41)
--- NOTE | 2019-09-08 12:01 | NUR ---
Echocardiogram completed.
--- NOTE | 2019-09-08 15:00 | NUR ---
PT ADMIT PT ADMIT VIA STRETCHER FROM ER INTO ICU RM4. PT ALERT AND ORIENT TO SELF, PLACE AND SITUATION BUT CONFUSED AT TIMES ABOUT LINES AND WHY IN THE HOSPITAL. REDIRECTED AND REORIENTED WHEN NEEDED. DENIES PAIN AT THIS TIME. SR TO ST WITH SBP IN THE 90-70S AND MAP LESS THAN 65. MD ADVISED AND LEVO ORDERED WITH MD BEDSIDE FOR WET CARDIAC ULTRASOUND. DOBUTAMINE ORDERED AND WILL TITRATE PER MD ORDER. AFEBRILE, PALP PULSES T/O AND BILAT LE EDEMA. 4L NC AND WEANED TO 2L NC WITH SATS WNL AND NO S/S OF SOB WITH CLEAR AND DIM LUNG SOUNDS BILAT. NPO AT THIS TIME. ANURIC. MD TO PLACE CENTRAL LINE. CARDIOLOGY AND NEPHROLOGY CONSULTED. WILL CONT TO MONITOR
[2019-09-08 18:17] LABS: PCO2 Arterial 37.6 mmHg (35-45); PO2 Arterial 66.4 mmHg (80-100)
--- NOTE | 2019-09-08 22:02 | NUR ---
[facility]: Care assumed at 1900hr. Patient alert and oriented x4, sitting upright in bed watching t.v. and visiting with family at bedside. Denies pain, discomfort, SOB, or dyspnea. O2-91-94% on 4L/NC. Dobutamine gtt infusing at 6mcg/kg/min, levophed gtt infusing at 3mcg/min, systolic BP 80's-90's, MAPs 60's. Will monitor BP and titrate as indicated. Heart rhythm shows sinus with frequent PVC's. Central line to rt femoral vein, patent and intact, infusing without difficulty. Peripheral IV to rt AC patent and intact, saline locked at this time. Dialysis fistula to lt upper arm, positive for bruit and thrill. Call light in reach, makes needs known. Call placed to Dr. Schaefer, received orders to D/c Imdur, and for BiPAP/CPAP protocol per RT. RT Onofre then notified, who set up CPAP with pressure of 7, 4L bleed in (patient's home use). Plan to place patient on CPAP while sleeping.
--- NOTE | 2019-09-09 02:50 | NUR ---
TOD: Patient TOD at 0238hr, verified by lack of apical pulse. Maranda Greer RN called Donor referral line, informed that patient is not a potential donor. Call placed to patient's sister Susy Zhang, Susy informed this nurse that she did not wish to come see that patient at this time, and gave approval to release him to [facility]. Dr. Orta informed of patient's TOD.
[2019-09-09 04:22] LABS: Albumin, Blood 2.3 g/dL (3.4-5.0); Anion Gap 9 mmol/L (6-16); Blood Urea Nitrogen 36 mg/dL (8-24); CO2, Blood 31 mmol/L (21-32); Chloride, Blood 93 mmol/L (98-108); Creatinine, Blood 5.13 mg/dL (0.60-1.20); Glomerular Filtration Rate 12 (60-); Glucose, Blood 105 mg/dL (70-99); Potassium, Blood 4.3 mmol/L (3.5-5.5); Sodium, Blood 133 mmol/L (136-145)
--- NOTE | 2019-09-09 06:12 | NUR ---
Shift Summary: Patient slept on/off throughout shift. C/o pain to lower back, effectively managed with x1 prn Oxycodone. Denies chest pain, pressure, or discomfort. Mild SOB with exertion in bed, quickly resolves with rest. O2-92-96% on 4L/NC while awake, on CPAP (auto pressure mode) with 4L bleed in while sleeping. Dobutamine gtt increased from 6mcg to 7mcg/kg/min, levophed gtt increased from 3mcg/min to 6mcg/min throughout shift. Systolic BP's remain 80's-low 100's and MAP's in the 60's. Central line to rt femoral remains patent and intact. Tolerating PO food and fluids without difficulty. Dr. Palmer to bedside this morning, ordered dialysis for this morning. Call light in reach, makes needs known. Will continue to monitor until report to day shift RN.
--- NOTE | 2019-09-09 07:53 | NUR ---
CARE ASSUMED ASSESSMENT COMPLETED. LEVO INFUSING AT 6MCG, DOPAMINE AT 7MCG, HR 80'S-90'S SINUS ARRHYTHMIA WITH MANY PVC'S, MAP 67, PT DENIES CHEST DISCOMFORT AND SOB. 2+ EDEMA TO LE'S UP TO LOWER ABD PRESENT, PLAN FOR DIALYSIS TODAY IF BP WITHSTAND. UNABLE TO FIND PEDAL PULSES WITH DOPPLER, POST TIBIAL PULSES PRESENT BY DOPPLER, CAP REFILL WNL, SKIN TO LE'S PWD. SPO2 95 3L/NC, CONGESTED COUGH NOTED, PT EXPECTORATING SMALL AMOUNTS OF YELLOW SPUTUM. ANURIC AT BASELINE. CL TO RIGHT GROIN WNL, INFUSING/FLUSHING WITHOUT DIFFICULTY. PT ALERT AND ORIENTED X4, DENIES PAIN OR C/O AT THIS TIME, WILL CONTINUE TO MONITOR.
--- NOTE | 2019-09-09 10:58 | NUR ---
UPDATE PT TOLERATING FOOD WELL, ASSESSED BY DR.'S GARCIA AND JUSTINE, NO NEW ORDERS AT THIS TIME. LEVO AND DOPAMIN CONTINUE TO INFUSE, RATES UNCHANGED, MAPS 60'S. HR AND RHYTHM UNCHANGED. PT UP TO CHAIR, DESAT TO 86%, RECOVERED WELL WITH COACHING AND O2 4L/NC. PT CURRENTLY REMAINS IN CHAIR TALKING WITH VISITORS AT BEDSIDE, DENIES C/O. VSS.
--- NOTE | 2019-09-09 13:52 | NUR ---
UPDATE PT TOLERATED CHAIR WELL, BACK TO BED AT THIS TIME FOR DIALYSIS. LEVOPHED UP TO 12MCG PER DR. GARCIA, DOBUTAMINE REMAINS AT 7MCG. VSS, HR 90'S, MAP 60'S. PT REMAINS ORIENTED X4, DIALYSIS NURSE AT BEDSIDE. CRACLKES AND EDEMA UNCHANGED FROM THIS MORNING.
--- NOTE | 2019-09-09 16:50 | NUR ---
Initial palliative care consult: Glenroy is a 73 year old with a history of CAD, ESRD on HD, chronic systolic heart failure, COPD, PVD. He recently had a NSTEMI. He just completed a HD treatment prior to my arrival. Glenroy reports he and his live alone and have been for 50+ years. 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 He is normally home alone and they share household duties. He no longer drives, he states various family members get him to and from HD 3x/week. He reports that recently it is diffifult for him to assist with chores at home. He has noticed increasing weakness and SOB. Discussed his heart and kidney failure and talked about his EF. Current EF is 10-15%, in 03/2019 it was 34%, in 08/2018 it was 40-45%. Earlier today he had a conversation with the MD and changed his code status to limited meds only. He states he would like to talk to his further about code status and future care needs. He tells this law writer that he may need more assistance at home if he is unable to get around and walk by himself as he was prior to this admission. He states that he does not want to stop dialysis treatments at this time. He would like to continue those as he reports that he tolerates them well. He does not appear to understand how poorly his heart is functioning at this time. He states he wants to get better but he also states that he isn't sure how much longer he will live. He is worried about the financial health of his if he passes away. Glenroy is very fatigued during this visit, so this visit was kept to 20 minutes. He would like to discuss code status with his when she arrives later this evening. It would beneficial to have a discussion re: prognosis with his present to answer questions and plan future care when he isn't tired. He would hospice appropriate should he decide to choose that route for treatment. He is currently on two pressors to keep his SBP in the 90s this afternoon. PC will plan to follow for advanced care planning when he is rested and his is present.
--- NOTE | 2019-09-09 16:53 | NUR ---
UPDATE DIALYSIS COMPLETED, 2 LITERS REMOVED PER APPRENTICE PATTERN MAKER. VSS T/O WITH INCREASED LEVO GTT, WILL ATTEMPT TO TITRATE PRESSORS ABLE. PT MEDICATED WITH OXYCODONE FOR RLS PAIN, IS NOW RESTING IN BED WITHOUT C/O. PALLIATIVE CARE IN TO SPEAK WITH PATIENT. PT REMAINS PLEASANT AND COOPERATIVE, ORIENTED X4.
--- NOTE | 2019-09-09 18:28 | NUR ---
END OF SHIFT PT TOLERATED DINNER WELL, DENIES PAIN OR DISCOMFORT AT THIS TIME, RLS SYMPTOMS RESOLVED AFTER OXYCODONE. BP STABLE, MAP 84, DOBUTAMINE BEING TITRATED DOWN PER DR. GARCIA. HR 80'S-90'S, RHYTHM UNCHANGED. PT DENIED CP/PRESSURE T/O SHIFT, SOB AT REST IMPROVED AFTER DIALYSIS, DID LUNG SOUNDS. PT ON 4L/NC WITH SPO2 >90%. R FEMORAL CL WNL, INFUSING WITHOUT DIFFICULTY. REPORT TO ONCOMING SHIFT.
--- NOTE | 2019-09-09 19:15 | NUR ---
ASSUMED PT CARE FROM [facility] PT SLEEPING SITTING UP IN BED. FAMILY AT BEDSIDE. PT EASILY AROUSES, BUT FALLS ASLEEP QUICKLY. DOBUTAMINE GTT AT 3MCG/KG/MIN AND LEVOPHED AT 12MCG/KG/MIN. SBP 90-100'S WITH MAP'S 60'S. PT IS AT 4L NC WITH BIOX MID 90'S; CPAP AT HS WITH 4L BLEED IN. PT NOTED TO BE SOB AT REST. APPEARS VERY LETHARGIC. PT IS ALERT AND ORIENTED; ABLE TO MAKE NEEDS KNOWN. CALL LIGHT WITHIN REACH.
--- NOTE | 2019-09-09 21:07 | NUR ---
CALL OUT TO DR. GARCIA REGARDING PT UPDATE FAMILY SPOKE WITH PALLIATIVE CARE NURSE, MARTHA, REGARDING CODE STATUS. PT HAS DECIDED TO REMAIN FULL CODE INCLUDING CPR AND INTUBATION. DR. GARCIA AWARE AND ORDER HAS BEEN CHANGED.
--- NOTE | 2019-09-09 21:11 | NUR ---
CLinical Visit: Called to pt's room to review code status. Family is assembled at bedside and concerned. They report that his heart function is 10%. They are requesting more information about code status, since many people have been asking the pt about it today. Code status explained in detail. All aspects of resusitation explained. Questions related to his disease process and consequences of resusitation are also addressed. After this, the pt states that he would want one attempt only to resusitate. Explained that the family would be called and given the option of continuing resusitation efforts or other options partaining to the situation. Afterwards, code status could be evaluated again. Pt states that this would be difficult on his 's emotions. I did acknowledge that this is possible and that a code and resusitation effort is difficult and traumatic for pt and family. Explained risk of injury and pain during chest compressions and for survival following CPR. For now, he is requesting full code status. The family is requesting a doctor visit for additional questions and knowledge. Instructed that when they get to the room tomorrow, the nurse can call the doctor to ask if he or she is available to make an additional visit to discuss further. Also covered this visit was hospice services. Instructed family on hospice philosophy and care, symptom management, revocation of services if desiring to return to the hospital ER for treatment, 09/02 nurse availability, Medicare coverage. The family seems to understand this. Instructed that pt does qualify for hospice for his heart condition as it is now.
[2019-09-10 03:39] LABS: Hematocrit 34.8 % (37.0-53.0); Hemoglobin 10.9 g/dL (13.5-17.5)
[2019-09-10 03:58] LABS: Albumin, Blood 2.2 g/dL (3.4-5.0); Anion Gap 10 mmol/L (6-16); Blood Urea Nitrogen 30 mg/dL (8-24); Bun/Creatinine Ratio 6.3 (12.0-20.0); CO2, Blood 30 mmol/L (21-32); Calcium, Blood 9.1 mg/dL (8.5-10.1); Chloride, Blood 92 mmol/L (98-108); Creatinine, Blood 4.76 mg/dL (0.60-1.20); Glomerular Filtration Rate 13 (60-); Glucose, Blood 114 mg/dL (70-99); Phosphorus, Blood 4.2 mg/dL (2.5-4.9); Potassium, Blood 4.2 mmol/L (3.5-5.5); Sodium, Blood 132 mmol/L (136-145)
--- NOTE | 2019-09-10 05:27 | NUR ---
END OF SHIFT SUMMARY NO SIGNIFICANT CHANGES SINCE LAST ENTRY. DOBUTAMINE GTT REMAINS INFUSING AT 5MCG/KG/MIN AND LEVOPHED AT 8MCG/KG/MIN T/O SHIFT WITH SBP'S 80'S; MAP'S GREATER THAN 65. PT HAS BEEN SINUS ARRHYTHMIA WITH PVC'S; HR 80-90'S. CPAP AT HS WITH INCREASED TO 10-20 CM H20 WITH AN 8L BLEED IN D/T OXYGEN SATURATIONS DIPPING TO THE MID 80'S. PT HAS BEEN VERY SOB AT REST. DIFFICULT TIME SLEEPING TONIGHT; VERY RESTLESS AND JUST COULDN'T GET "COMFORTABLE". PT C/O 02/26 RIGHT WRIST PAIN. STATED IT WAS THROBBING. OFFERED ICE AND ELEVATION. PT STATED IT WAS TOLERABLE, BUT THEN LATER ASKED FOR PRN OXYCODONE. NO SWELLING OR VISIBLE INJURY NOTED TO WRIST. PT STATES HE RANDOMLY GETS THESE PAINS AT HOME TOO. HOWEVER, OXYCODONE APPEARED TO BE EFFECTIVE FOR PT. CALL LIGHT REMAINS WITHIN REACH AND PT IS ABLE TO MAKE HIS NEEDS KNOWN. WILL CONTINUE TO MONITOR UNTIL REPORT IS HANDED OFF TO ONCOMING RN.
--- NOTE | 2019-09-10 06:30 | NUR ---
PLACED CALL TO DR. LUNA REGARDING PAIN AND SWELLING TO RIGHT WRIST. OBTAINED ORDERS FOR 2 VIEW XRAY TO RIGHT WRIST TO R/O FX.
--- NOTE | 2019-09-10 11:14 | NUR ---
CARE ASSUMED ASSESSMENT COMPLETED, LEVOPHED AT 8MCG, DOBUTAMINE AT 5MCG, HR 80'S-90'S, MAP 50'S-60'S SINUS WITH PVC'S, PVC'S LESS FREQUENT THAN YESTERDAY. WILL TITRATE PRESSORS TO KEEP MAP >65. PT DENIES CHEST PAIN AND SOB, CRACKLES REMAIN IN BILAT BASES, PT REMAINS EDEMATOUS FROM LE'S TO LOWER ABDOMEN, WILL NOT RECEIVE DIALYSIS TODAY PER DOOR REPAIRMAN. PT TOLERATED BREAKFAST AND PO MEDICATIONS WELL, C/O R WRIST PAIN, ICE PACK TO RIGHT WRIST, OXYCODONE PER ORDERS. DR. GARCIA AND DR. ADAM IN, NO NEW ORDERS AT THIS TIME. WILL LEAVE DOBUTAMINE AT 5MCG PER DR. GARCIA AND TITRATE LEVO ABLE. WRIST XRAY COMPLETED, PT RESTING IN BED, DENIES NEEDS AT THIS TIME.
--- NOTE | 2019-09-10 14:52 | NUR ---
UPDATE PT'S FAMILY AT BEDSIDE, WILL NOTIFY PALLIATIVE CARE NURSE. VSS, NO CHANGES TO DRIPS SINCE THIS MORNING. PT PLACED ON BIPAP BY RT FOR DIFFUSE CRACKLES AND SOB, IS NOW RESTING IN BED WITH EYES CLOSED. GOOD PAIN RELIEF FROM OXYCODONE. RIGHT WRIST REMAINS SWOLLEN.
--- NOTE | 2019-09-10 18:06 | NUR ---
END OF SHIFT PT REMAINS ON CPAP, LS HAVE CLEARED SLIGHTLY BUT CRACKLES REMAIN PRESENT. PT C/O BILATERAL WRIST PAIN, MEDICATED WITH OXYCODONE, WARM COMPRESSES APPLIED PER PT REQUEST. PT REFUSED DINNER STATING HE WAS NOT HUNGRY, IS NOW LYING IN BED WITH EYES CLOSED. VSS, MAP 60'S WITH DOBUTAMINE 5MCG AND LEVOPHED 7MCG. SPO2 >95% ON CPAP, SETTINGS PER RT. EDEMA REMAINS UNCHANGED THIS SHIFT. REPORT TO ONCOMING RN.
--- NOTE | 2019-09-10 23:08 | NUR ---
ASSUMPTION OF CARE ASSUMED CARE OF PT @ 1900, PT AWAKE IN BED, ALERT AND ORIENTED TO SELF, FAMILY, LOCATION AND FOLLOWING DIRECTIONS. PT ON CPAP, WITH BREAKS ON NC TO MAINTAIN OXYGEN SATURATIONS>90%. PT COMPLAINS OF INCREASED FEELING OF SOB, O2 SATURATIONS STABLE. PT COMPLAINS OF PAIN BILAT ARMS AND WRISTS WITH PAIN OUT OF PROPORTION WITH SMALL MOVEMENTS. CALL PLACED TO DR GARCIA, MORPHINE ORDERED, AND PT PLACED ON BIPAP. MONITOR SHOWS SINUS RHYTHM WITH FREQUENT PVC'S, LEVO GTT TITRATED FROM 7 TO 10mcg/min, DOBUTAMINE GTT @ 5mcg/kg/min TO MAINTAIN MAPS>65, POOR CAP REFILL TO EXTREMETIES. CL TO R GROIN INTACT. PT INITIALLY SWALLOWING PILLS WHOLE AND TOLERATING BREAKS FROM BIPAP ON NC. MED PASS @ 2200 PT SATURATIONS DECREASED TO 85% WHILE ON NC AND CHOKED ON PO MEDICATIONS, ENSURED CLEAR AIRWAY AND REPLACED BIPAP, PT SLOW TO RECOVER.
--- NOTE | 2019-09-11 00:20 | NUR ---
PT RESTING IN BED, REMAINS ON BIPAP TO MAINTAIN OXYGEN SATURATIONS>90%, PT AROUSABLE TO VERBAL STIMULI. PT COMPALINS OF 9/10 PAIN IN BILAT ARMS AND PAIN IN THE HEELS, PT MEDICATED WITH MORPHINE FOR PAIN PRIOR TO REPOSITIONING IN BED, HEEL PROTECTORS APPLIED, BLE ELEVATED ON PILLOW. PT REMAINS ON PRESSORS (SEE FLOWSHEET) CALL LIGHT WITHIN REACH.
[2019-09-11 04:20] LABS: Albumin, Blood 2.3 g/dL (3.4-5.0); Anion Gap 10 mmol/L (6-16); Blood Urea Nitrogen 39 mg/dL (8-24); Bun/Creatinine Ratio 6.7 (12.0-20.0); CO2, Blood 29 mmol/L (21-32); Calcium, Blood 9.3 mg/dL (8.5-10.1); Chloride, Blood 89 mmol/L (98-108); Creatinine, Blood 5.85 mg/dL (0.60-1.20); Glomerular Filtration Rate 10 (60-); Glucose, Blood 100 mg/dL (70-99); Magnesium, Blood 2.1 mg/dL (1.6-2.4); Phosphorus, Blood 5.2 mg/dL (2.5-4.9); Potassium, Blood 5.3 mmol/L (3.5-5.5); Sodium, Blood 128 mmol/L (136-145)
--- NOTE | 2019-09-11 06:48 | NUR ---
SHIFT SUMMARY PT REMAINS AROUSABLE T/O SHIFT, PLACED ON BIPAP FOR MUCH OF SHIFT TO DECREASE SOB, ATTEMPTED BREAK FROM BIPAP THIS AM ON 4L PER NC, PT TOLERATED FOR SHORT PERIOD OF TIME, PLACED BACK ON BIPAP. PT TOLERATING SMALL SIPS OF WATER, ATTEMPTED PO MEDICATION THIS AM, PT UNABLE TO SWALLOW PILLS. PT REMAINS ON LEVO AND DOBUTAMINE TO MAINTAIN MAP>65, LEVO CURRENTLY INFUSING @15mcg/min AND DOBUTAMINE @ 5mcg/kg/min (SEE FLOWSHEET), HR 90'S-110. NO URINE OUTPUT THIS SHIFT. PT COMPLAINS OF INCREASED PAIN BOTH GENERAL BODY PAIN AND BILAT WRIST/ARM PAIN, PAIN OUT OF PROPORTION WITH MOVEMENT. REPORT TO CANDELARIA PRINCE.
--- NOTE | 2019-09-11 07:57 | NUR ---
CARE ASSUMED ASSESSMENT COMPLETED. PT ON BIPAP 12/6 FIO2 50%, SPO2 93-94%, RR 20'S-30'S. PT ANXIOUS, PAINFUL IN UPPER EXTREMETY JOINTS, MEDICATED WITH MORPHINE PER ORDERS. LS COARSE, PT EXPECTORATING BROWN MUCOUS. HR SLIGHTLY TACHYCARDIC, BP LOW, MAP 60'S. LEVOPHED 15MCG, DOBUTAMINE 5MCG, WILL TITRATE INDICATED. PT DROWSY AFTER MORPHINE, REMAINS PAINFUL AND ANXIOUS WHEN AWAKE.
--- NOTE | 2019-09-11 10:32 | NUR ---
UPDATE FAMILY AT BEDSIDE WITH DR. GARCIA, PROGNOSIS AND CODE STATUS DISCUSSED, PT DNI. CPAP MASK REMOVED FOR BREAK, ORAL CARE COMPLETED, WATER GIVEN. PT ON NC 4L, SPO2 92%, WILL CONTINUE TO MONITOR AND REPLACE CPAP INDICATED. FAMILY REMAINS AT BEDSIDE.
--- NOTE | 2019-09-11 11:24 | NUR ---
UPDATE DR. ADAM IN TO ASSESS, PALLIATIVE CARE RN AT BEDSIDE AT THIS TIME TO DISCUSS HOSPICE AND CODE STATUS. PT REMAINS ON PRESSORS, RATES UNCHANGED, MAP 60'S. ON BIPAP WITH SHORT INTERMITTENT BREAKS. PLAN FOR DIALYSIS THIS AFTERNOON.
--- NOTE | 2019-09-11 15:53 | NUR ---
UPDATE PT ATE BITES OF LUNCH, THEN REQUESTED BIPAP FOR COMFORT. LS HAVE CLEARED WTIH BIPAP, PT CONTINUES TO EXPECTORATE BROWN SPUTUM. PT CODE STATUS CHANGED TO DNR/DNI, POLST SIGNED BY FAMILY, PALLIATIVE CARE RN, AND DR. GARCIA, PT AGREEABLE AND AWARE OF INDICATIONS OF DNR/DNI. PT RESTING, REPOSITIONED WITH ASSISTANCE. DIALYSIS BEGAN AT 1330 FOR 2 HOURS, 600ML REMOVED, PT TOLERATED WELL, BP REMAINED STABLE WITH MAPS 60'S-70'S. PT DID NOT TAKE AM MEDICATIONS D/T NOC SHIFT REPORT OF CHOKING ON MEDS. PT AWAKE AND ALERT AT THIS TIME, SITTING UP IN BED WITH NC ON, SATTING WELL, RR 20'S. MEDICATIONS ADMINISTERED AT THIS TIME WITHOUT DIFFICULTY, PT MEDICATED FOR HEEL AND WRIST PAIN. DENIES OTHER NEEDS AT THIS TIME, DRIP RATES UNCHANGED PER DR. GARCIA.
--- NOTE | 2019-09-11 19:15 | NUR ---
END OF SHIFT PT TOLERATING SMALL AMOUNTS OF FOOD WITHOUT DIFFICULTY. REMAINS SITTING UP IN BED VISITING WITH FAMILY, REMAINS ON NC 5L, SPO2 MID 90'S. LEVO 15MCG, DOBUTAMINE 5MCG, MAP 60'S. DR. GARCIA UPDATED ON PALLIATIVE CARE CONVERSATION WITH FAMILY. HR REMAINS 80'S-90'S SINUS WITH PVC'S, PT DENIES CHEST PAIN. CRACKLES IN BILAT BASES, PT DENIES SOB AT THIS TIME. REPORT TO ONCOMING SHIFT.
--- NOTE | 2019-09-11 20:04 | NUR ---
Visit with family to complete poslt and to discuss plan of care. they decided DNR are discussing hospice care wanted to see how he tolerated dislysis. Long converstion with trailer tank truck driver on prognosis and review of hospice
--- NOTE | 2019-09-11 21:30 | NUR ---
ASSUMPTION OF CARE ASSUMED CARE OF PT @ 1900, PT ALERT AND ORIENTED TO SELF, EVENT, PLACE AND FOLLOWING DIRECTIONS. PT INTERACTING WT VISITORS IN ROOM. O2 SATURATIONS MAINTAINED>90% ON 5L PER NC, BIPAP AVAILABLE TO USE WHILE SLEEPING. MONITOR SHOWS SINUS RHYTHM WITH PVC'S, HR 80'S-90'S, MAPS>65 ON LEVO @15 AND DOBUTAMINE @5, CL TO R GROIN INF GTT'S, DRESSING IN TACT. PT TOLERATING PO, STS HE IS HAVING DIFFICULTY CHEWING. PT SWALLOWED MOST PILLS W/O DIFFICULTY BUT IS EASILY TIRED AND CAN ONLY SWALLOW 2-3 PILLS AT A TIME. PT COMPLAINS OF PAIN TO HIS UPPER EXTREMITIES, MADE WORSE WITH TOUCH/MOVEMENT.
--- NOTE | 2019-09-11 23:58 | NUR ---
PT RESTING IN BED, TOLERATING BIPAP. MAPS REMAIN>65 ON LEVO @ 15 AND DOBUTAMINE @ 5.
--- NOTE | 2019-09-12 01:02 | NUR ---
PT AWAKE, YELLING FOR HELP, RN TO BEDSIDE, PT STS HE IS CHOKING ON SALIVA, BIPAP REMOVED, ORAL SUCTION PROVIDED WITH RELEIF. PT PLACED ON 5L PER NC AT THIS TIME.
[2019-09-12 03:51] LABS: Hematocrit 34.7 % (37.0-53.0)
[2019-09-12 04:06] LABS: Albumin, Blood 2.2 g/dL (3.4-5.0); Anion Gap 11 mmol/L (6-16); Blood Urea Nitrogen 34 mg/dL (8-24); Bun/Creatinine Ratio 6.5 (12.0-20.0); CO2, Blood 30 mmol/L (21-32); Calcium, Blood 9.1 mg/dL (8.5-10.1); Chloride, Blood 87 mmol/L (98-108); Creatinine, Blood 5.25 mg/dL (0.60-1.20); Glomerular Filtration Rate 11 (60-); Glucose, Blood 109 mg/dL (70-99); Magnesium, Blood 2.1 mg/dL (1.6-2.4); Phosphorus, Blood 5.5 mg/dL (2.5-4.9); Potassium, Blood 4.9 mmol/L (3.5-5.5); Sodium, Blood 128 mmol/L (136-145)
--- NOTE | 2019-09-12 06:13 | NUR ---
SHIFT SUMMARY PT ALTERNATED BETWEEN SLEEP AND WAKE T/O SHIFT, REMAINS ORIENTED, COMPLAINS OF SOME PAIN IN UPPER EXTREMETIES, PT WITH ITCHING TO ARMS, STOMACH AND BACK, LOTION APPLIED FOR RELEIF. PT ON 5L PER NC WHILE AWAKE AND BIPAP 40% FIO2 WHILE SLEEPING TO MAINTAIN O2>90%, MONTOR SHOWS SINUS RHYTHM, HR 80'S-90'S, MAPS>55 ON LEVO @ 15 AND DOBUTAMINE @ 5. PT FREQUENTLY CLEARING THROAT AND COUGHING UP BROWN/YELLOW SECRETIONS, USES ORAL SUCTION INDEPENDENTLY. PT STS HE HAS HAD TROUBLE CHEWING, UPDATED DIET ORDER TO SOFT/BITE SIZE. DR ERICKSON IN TO SEE PT THIS AM, 1L FLUID RESTRICTION ORDERED, PT TO BE DIALYZED TODAY.
--- NOTE | 2019-09-12 06:44 | NUR ---
DR BELL IN TO SEE PT, NO NEW ORDERS AT THIS TIME, STS WILL MAKE HERSELF AVAILABLE FOR ANY QUESTIONS/CONVERSATIONS WITH PT AND FAMILY.
--- NOTE | 2019-09-12 09:44 | NUR ---
BEDSIDE REPORT TAKEN AT 0715. PT AWAKE ON 5L N/C. PT DENIES C/O PAIN AT THIS TIME BUT GRIMACES AND MOANS W MOVEMENT. LEVOPHED AT 15MCG, DOPUTAMINE AT 5MCG. MAP JUST OVER 65. PT HAS DYSPNEA W EXERTION. O2 INCREASED TO 6L DURING BREAKFAST. CRACKLES TO BILAT BASES. PT FEARFUL TO FALL ASLEEP, HE FEELS HE WILL WONT WAKE UP AND WILL .
--- NOTE | 2019-09-12 12:15 | NUR ---
DR TRUONG AT BEDSIDE. PT SITTING UP IN BED EATING LUNCH. O2 AT 5L VIA N/C. LEVOPHED AT 15MCG, DOPUTAMINE AT 5MCG
--- NOTE | 2019-09-12 12:54 | NUR ---
PT HAS QUESTIONS ABOUT HOSPICE; DOES NOT SEEM TO COMPREHEND THAT HE CAN NOT GO HOME ON HOSPICE WHILE ON LEVOPHED/DOBUTAMINE. PALIATIVE CARE AND DR TRUONG NOTIFIED. FAMILY ARE ON THERE WAY IN FOR MEETING W PALIATIVE CARE.
--- NOTE | 2019-09-12 13:47 | NUR ---
FAMILY AND PATIENT HAVE DECIDED TO PURSUE COMFORT CARE. THEY ARE WAITING FOR FAMILY TO ARRIVE. GTT'S WILL REMAIN INFUSING UNTIL THE FAMILY IS READY TO HAVE THEM TURNED OFF. DR TRUONG AWARE; ORDERS TO FOLLOW THIS AFTERNOON FOR COMFORT CARE. PT RESTING IN BED WITH SEVERAL FAMILY MEMBERS AT BEDSIDE. COMFORT CARE CART ORDERED.
--- NOTE | 2019-09-12 17:09 | NUR ---
met with family pt transitioning to comfort only review with family.
--- NOTE | 2019-09-12 19:30 | NUR ---
ASSUMPTION OF CARE ASSUMED CARE OF PT @ 1900, PT AWAKE IN BED, ORIENTED TO SELF, FAMILY, AND FOLLOWING DIRECTIONS. BENADRYL PROVIDED FOR RELEIF FROM ITCHING. CL IN PLACE TO Estefani SANTOS, LEVOPHED INF @ 6mcg/min, PLAN TO TIRTATE LEVO OFF THIS SHIFT.
--- NOTE | 2019-09-12 20:03 | NUR ---
PT STATES THAT ALL OF THE FAMILY THAT HE WANTS AT BEDSIDE HAS BEEN THERE OR IS PRESENT. AT BEDSIDE. DISCUSSION HELD R/T WHEN FAMILY/PT WOULD LIKE PRESSORS/DOBUTAMINBE TITRATED OFF. PRESSORS TITRATED DOWN SLOWLY STARTING AT [address] TRUONG/DR MINER, AND FAMILY. PT DID INTITIALLY TOLERATED THE GTT'S BEING TITRATED DOWN. AROUND 1800 PT STATES HE IS FEARFUL OF DYING BUT ALSO READY. DR MINER AT BEDSIDE SHORTLY AFTER TO HOUSE CARPENTER HELPER PT AND PT'S . COMFORT CARE ORDERS PLACED SHORTLY AFTER WITH ORDERS TO TITRATE GTT'S SLOWLY OFF. PT MEDICATED FOR SEVERE JOINT PAIN AT THE WRIST BILAT. SOLUMEDROL X1 ALSO GIVEN IV IN AN ATTEMPT TO EASE JOINT PAIN PER DR MINER. BENADRYL ORDERED FOR PERSISTENT ITCHING IN PT. MS GIVEN SEVERAL TIMES IN SMALL DOSES WITH OVERALL GOOD EFFECT.
--- NOTE | 2019-09-12 20:43 | NUR ---
PT RESTING AT THIS TIME, ORAL SUCTION PROVIDED PRN BY PT AND RN. FAMILY AT BEDSIDE. TITRATED LEVO TO 4mcg/min.
--- NOTE | 2019-09-12 21:41 | NUR ---
PT RESTING, DIFFICULT TO AROUSE, REPOSITIONED AT THIS TIME, PT MOANS AND COMPLAINS OF BACK PAIN, MORPHINE PROVIDED. LEVO TITRATED TO 2mcg/min AT THIS TIME.
--- NOTE | 2019-09-12 22:39 | NUR ---
K PAD PROVIDED FOR HEAT THERAPY TO R WRIST, PT WITH OCCASIONAL GRIMACES AND COMPLAINTS OF PAIN TO WRIST, FAMILY AGREEABLE TO DHRUV THERAPY AT THIS TIME, INFORMED FAMILY THAT PAIN MEDICATIONS ARE AVAILABLE IT NEEDED, PT DIFFICULT TO AROUSE AT THIS TIME.
--- NOTE | 2019-09-12 23:52 | NUR ---
PT RESTING, NO GRIMACING, MUSCLE TENSION OR OTHER SIGNS OF PAIN AT THIS TIME. WARM PACK STILL PRESENT AT R WRIST. SPOKE WITH FAMILY, LET THEM KNOW HR AND O2 IS STILL BEING MONITORED AT NURSES STATION AND IS CURRENTLY STABLE. FAMILY DENIES ANY OTHER NEEDS AT THIS TIME.
--- NOTE | 2019-09-13 01:56 | NUR ---
PT RESTING IN BED, FAMILY AT BEDSIDE SLEEPING. NO SIGNS OF PAIN OR DISCOMFORT AT THIS TIME, CONTINUED MONITORING PER REDUCTION PLANT SUPERVISOR, RADIAL PULSES 2+.
--- NOTE | 2019-09-13 02:32 | NUR ---
PT RESTLESS IN BED, SOME GRIMACING NOTED, PAIN MEDICATION PROVIDED.
--- NOTE | 2019-09-13 04:12 | NUR ---
PT STS SOB, APPEARS ANXIOUS, RT CALLED FOR MORPHINE UPDRAFT. SLOW SHALLOW BREATHING WITH APNEIC PERIODS AT THIS TIME.
--- NOTE | 2019-09-13 04:30 | NUR ---
TIME OF PT @ 0416, VERIFIED BY LACK OF APICAL PULSE, FAMILY AT BEDSIDE. DR LUNA NOTIFIED OF TIME OF .
--- NOTE | 2019-09-13 06:41 | NUR ---
FINAL DISCHARGE INITIATED, CALL PLACED TO DONOR LINE, NOTIFIED POTENTIAL EYE/TISSUE DONOR, ICE PLACED OVER EYES. PT RELEASED TO [facility] FROM [facility] @ 5193, AND INFORMED OF POTENTIAL DONOR STATUS.
== END 2019-09-13 04:16 ==
LOC: ER 08:48 → ICUE 10:39 → ERHOLD 10:39 → ICUE 13:15
PROVIDERS: Emergency Medicine; Internal Medicine Endocrinology, Diabetes & Metabolism; Internal Medicine Nephrology; ADMIT Hospitalist
PROC: 02HV33Z Insertion of Infusion Device into Superior Vena Cava, Percutaneous Approach (ICD-10-PCS; principal; 2019-09-08)
PROC: 3E043XZ Introduction of Vasopressor into Central Vein, Percutaneous Approach (ICD-10-PCS; 2019-09-08)
PROC: 5A1D70Z Performance of Urinary Filtration, Intermittent, Less than 6 Hours Per Day (ICD-10-PCS; 2019-09-08)
PROC: 5A1D70Z Performance of Urinary Filtration, Intermittent, Less than 6 Hours Per Day (ICD-10-PCS; 2019-09-09)
DX: I13.2 Hypertensive heart and chronic kidney disease with heart failure and with stage 5 chronic kidney disease, or end stage renal disease (principal); N18.6 End stage renal disease; I21.A1 Myocardial infarction type 2; I50.23 Acute on chronic systolic (congestive) heart failure; N25.81 Secondary hyperparathyroidism of renal origin; E87.1 Hypo-osmolality and hyponatremia; Z51.5 Encounter for palliative care; E11.22 Type 2 diabetes mellitus with diabetic chronic kidney disease; Z99.2 Dependence on renal dialysis; Z79.4 Long term (current) use of insulin; I95.9 Hypotension, unspecified; R57.0 Cardiogenic shock; I25.5 Ischemic cardiomyopathy; G47.33 Obstructive sleep apnea (adult) (pediatric); Z66 Do not resuscitate; I25.10 Atherosclerotic heart disease of native coronary artery without angina pectoris; E11.42 Type 2 diabetes mellitus with diabetic polyneuropathy; E11.51 Type 2 diabetes mellitus with diabetic peripheral angiopathy without gangrene; Z79.82 Long term (current) use of aspirin; Z79.84 Long term (current) use of oral hypoglycemic drugs; I25.2 Old myocardial infarction; M10.9 Gout, unspecified; K59.09 Other constipation; D63.1 Anemia in chronic kidney disease; E87.5 Hyperkalemia
CPT/HCPCS: 36415; 36556; 36600; 71275; 73100; 74175; 80053; 80069; 82803; 83735; 84484; 85014; 85018; 85025; 85610; 85730; 86850; 86900; 86901; 87081; 93005; 93010; 93308; 94640; 94660; 96360-59; 99285-25; A9270-GY; C1751; J1200; J1250; J1650; J2270; J2405; J2930; J7030; J7060; Q9967